=== PATIENT | male | born 1940 | race Caucasian/White ===

== ENCOUNTER 2017-08-09 03:07 | Inpatient (IN) | payer MEDICARE, MEDICAID ==
[~2017-08-09 03:07] MED LIST: ACIDOPHILUS LAC1 CAP PO; ARICEPT5 MG PO; BETAPACE 80 MG80 MG PO; CARDIZEM SR60 MG PO; DILANTIN100 MG PO; FLOMAX0.4 MG PO; KEPPRA500 MG PO; KLONOPIN0.5 MG PO; KRISTALOSE20 G/PKT PO; LEVOTHYROXINE100 MCG PO; MYSOLINE 50 MG50 MG PO; OMNICEF300 MG PO; PROTONIX40 MG PO; SYNTHROID50 MCG PO; XANAX0.25 MG PO
[2017-08-09 04:05] LABS: APPEARANCE CLEAR (CLEAR); BILIRUBIN NEGATIVE (NEGATIVE); COLOR YELLOW (YELLOW); GLUCOSE NEGATIVE (NEGATIVE); KETONE NEGATIVE (NEGATIVE); NITRITE NEGATIVE (NEGATIVE); PROTEIN TRACE mg/dL (NEGATIVE); UROBILINOGEN NORMAL (NORMAL)
[2017-08-09 04:07] LABS: BACTERIA FEW /hpf (NONE SEEN); EPITHELIAL CELLS 0-5 /hpf (0-5); RED CELLS - URINE 0-5 /hpf (0-5); WHITE CELLS - URINE 0-5 /hpf (0-5)
[2017-08-09 04:30] LABS: BASOPHILS 0.1 % (0-2); EOSINOPHILS 0.1 % (0-7); HEMATOCRIT 34.2 % (42.0-54.0); HEMOGLOBIN 11.3 g/dL (13.5-17.5); IMMATURE GRANULOCYTES 0.3 % (0-5); LYMPHOCYTES 7.4 % (15-50); MCH 29.6 pg (26.0-34.0); MCV 89.5 fL (80.0-100.0); MEAN PLATELET VOLUME 10.7 fL (7.4-10.4); MONOCYTES 15.1 % (2-11); RBC 3.82 10x6/uL (4.20-6.10); RDW 13.3 % (11.5-14.5); WBC 12.6 10x3/uL (4.8-10.8)
[2017-08-09 04:32] LABS: PLATELET COUNT 128 10x3/uL (130-400)
[2017-08-09 04:46] LABS: ALBUMIN 3.1 g/dL (3.4-5.0); ANION GAP 12.7 mmol/L (8-16); BILIRUBIN - TOTAL 0.39 mg/dL (0.2-1.3); CALCIUM 8.6 mg/dL (8.5-10.1); CARBON DIOXIDE 26.6 mmol/L (21.0-32.0); CREATININE - SERUM 1.1 mg/dL (0.6-1.3); POTASSIUM - SERUM 3.3 mmol/L (3.5-5.1); PROTEIN - SERUM 6.8 g/dL (6.4-8.2)
[2017-08-09 05:54] LABS: PHENYTOIN (DILANTIN) 27.2 ug/mL (10.0-20.0); VALPROIC ACID (DEPAKOTE) 4.5 ug/mL (50.0-100.0)
--- NOTE | 2017-08-09 08:45 | NUR ---
FOUND PT IN ROOM FROM ER. LYING IN BED AWAKE. VSS. PT IS ALERT BUT REALLY CONFUSED, PT ORIENTED TO SELF AND THATS IT. PT COULDNT TELL ME WHERE HE IS FROM OR CURRENT SITUATION OR PLACE. PT IS FROM [facility] AND WAS APPARENTLY FOUND ON FLOOR AND COULDNT TALK. PT IS TALKING WITH CLEAR NORMAL SPEED SPEECH. PERRLA INTACT. 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 PTS EXPLOSIVES WORKER MEMORY INTACT AND HE IS CURRENTLY REMINISCING ABOUT HIS PARENTS AND CHILDHOOD. ASSISTED PT TO BR AND HIS GAIT IS SLOW AND STEADY NO DEFICITS NOTED. WILL CONTINUE WITH PTS WORK-UP ADMISSION AND CURRENT ORDERS. NO FURTHER NEEDS AT THIS TIME. CL IN REACH, BED IN LOWEST, SIDE RAIL X2 AND BED ALARM ON.
--- NOTE | 2017-08-09 09:30 | NUR ---
MORNING MEDICATIONS PASSED ORDERED. PT SWALLOWED ALL PILLS WITHOUT ANY DIFFICULTIES NOTED AND ALL WHOLE WITH JUICE. PT SITTING UP IN BED OFFERED HIM BREAKFAST AND HE GAVE ORDER OF WHAT HE WANTED, TRAY ORDERED AND WILL WAIT. NO FURTHER NEEDS AT THIS TIME. LOVENOX FOR DVT PROPHYLACTICS.
[2017-08-09 11:23] VITALS: BP 119/46; BMI 24.3
[2017-08-09 12:10] VITALS: BP 100/40
--- NOTE | 2017-08-09 12:49 | NUR ---
PT GOT OOB AND SET OFF BED ALARM. ASSISTED PT TO BR AND HE PASSED BOWEL MOVEMENT. ASSISTED PT BACK INTO BED AND ENCOURAGED HIM TO USE CL FOR HELP OOB TO PREVENT FALLS. PT VERBALIZED UNDERSTANDING BUT OFTEN NEEDS FREQUENT CUING. WILL CPOC.
[2017-08-09] MEDS ORDERED: XARELTO20 MG PO (14:02)
[2017-08-09] MEDS ORDERED: SYNTHROID175 MCG PO (14:04)
[2017-08-09] MEDS ORDERED: ARICEPT10 MG PO (14:05)
[2017-08-09] MEDS ORDERED: DILANTIN50 MG PO ×2 (14:07)
[2017-08-09] MEDS ORDERED: CIMETIDINE200 MG PO (14:08)
[2017-08-09] MEDS ORDERED: DEPAKOTE125 MG PO (14:09)
[2017-08-09] MEDS ORDERED: TRAZODONE HCL50 MG PO (14:09)
--- NOTE | 2017-08-09 14:10 | NUR ---
CALLED [facility] AND VERIFIED PTS BASELINE. PT STAYS PLEASANTLY CONFUSED AND ORIENTED TO SELF ONLY. MED REC COMPLETED AND UPDATED PER [place] MOST RECENT LIST. PT IS A DNR AT [place] WILL OBTAIN ORDER FOR HOSPITAL STAY.
--- NOTE | 2017-08-09 14:15 | NUR ---
PTS HR 46 SB PER [employer] TECH. PAGED REGARDING UPDATED MED LIST TO SEE CHANGES AND AWARE OF LOW HR. WILL CPOC.
--- NOTE | 2017-08-09 14:37 | NUR ---
DNR ORDER IN PLACE AND COPIES IN CHART. MED CHANGES MADE REQUESTED PER [place] [facility]IM[facility]. WILL CPOC.
[2017-08-09 15:00] LABS: T4 THYROXIN - FREE 1.31 ng/dL (0.76-1.46); THYROID STIMULATING HORMONE 0.09 uIU/mL (0.36-3.74)
[2017-08-09 15:43] VITALS: BP 96/39
--- NOTE | 2017-08-09 17:43 | NUR ---
IN/OUT CATH PERFORMED FOR URINE CX ORDERED. PT TOLERATED WITHOUT ANY COMPLAINTS. 200CC OF CLEAR YELLOW URINE DRAINED. URINE SENT TO LAB. NO FURTHER NEEDS AT THIS TIME.
[2017-08-09 19:00] VITALS: BP 142/42
--- NOTE | 2017-08-09 19:59 | NUR ---
RESUMED CARE OF PT, LYING IN BED RESPIRATIONS EVEN AND UNLABORED ON ROOM AIR. ASSISSTED TO BATHROOM. LEFT FOREARM INFUSING 1/2 NS @ 75. 61 SR ON TELEMETRY. WILL CONTINUE TO MONITOR. SEE NURSE ASSESSMENT.
[2017-08-10] VITALS (7 sets, daily range): BP systolic 128–173; BP diastolic 50–101; BMI 24.1
[2017-08-10 04:24] LABS: BASOPHILS 0.1 % (0-2); EOSINOPHILS 0.2 % (0-7); HEMATOCRIT 34.1 % (42.0-54.0); HEMOGLOBIN 11.1 g/dL (13.5-17.5); IMMATURE GRANULOCYTES 0.2 % (0-5); LYMPHOCYTES 11.9 % (15-50); MCH 29.1 pg (26.0-34.0); MCHC 32.6 g/dL (31.0-37.0); MCV 89.3 fL (80.0-100.0); MEAN PLATELET VOLUME 10.5 fL (7.4-10.4); MONOCYTES 11.3 % (2-11); NEUTROPHILS 76.3 % (40-80); PLATELET COUNT 117 10x3/uL (130-400); RBC 3.82 10x6/uL (4.20-6.10); RDW 13.6 % (11.5-14.5); WBC 12.3 10x3/uL (4.8-10.8)
[2017-08-10 04:38] LABS: CALCIUM 8.3 mg/dL (8.5-10.1); CARBON DIOXIDE 28.5 mmol/L (21.0-32.0); CREATININE - SERUM 1.1 mg/dL (0.6-1.3); POTASSIUM - SERUM 3.5 mmol/L (3.5-5.1)
--- NOTE | 2017-08-10 05:58 | NUR ---
IV REMOVED BY PT, TIP INTACT. 22 GAUGE TO LEFT HAND X 1 STICKS. CALL LIGHT IN REACH AND BED ALARM ON.
--- NOTE | 2017-08-10 06:42 | NUR ---
NO CHANGES FROM PREVIOUS ASSESSMENT.
--- NOTE | 2017-08-10 07:06 | HP ---
PATIENT: MONIK PEÑALOZA MEDICAL RECORD: [id number] ACCOUNT: [id number] LOCATION:[address] : 40 ADMISSION DATE: 08/09/17 HISTORY AND PHYSICAL EXAMINATION DATE OF ADMISSION: 08/09/2017 CHIEF COMPLAINT: Fall. HISTORY OF PRESENT ILLNESS: The patient is a 77-year-old gentleman, who resides at a local senior care. He apparently has no local physician and is admitted to my service on an unassigned medicine. Apparently, the patient had fallen at [facility]. The patient presented to the Emergency Room for evaluation. He was evaluated by Dr. Mercado, who felt the patient should be admitted with leukocytosis as well as bacteremia. PAST MEDICAL HISTORY: His history is very difficult to obtain secondary to his dementia. Apparently, the patient has had a history of dementia, possible diabetes mellitus, hypothyroidism, cholelithiasis, history of seizure disorder, history of atrial fibrillation. FAMILY HISTORY: Cannot be obtained. HABITS: The patient denies any ethanol, tobacco use or abuse. He does reside in a local senior care. ALLERGIES: He has known drug allergies. MEDICATIONS: Include Xarelto 20 mg 1 p.o. q. day, phenytoin 100 mg at noon, lactulose 20 grams q. day, Depakote Sprinkle 125 mg 3 times a day, trazodone 50 mg p.o. q. day, phenytoin 150 mg 2 times a day, Tagamet 200 mg b.i.d., Mysoline 50 mg 2 times a day, Keppra 500 mg 2 tablets once a day, Betapace 80 mg b.i.d., Synthroid 175 mcg once a day, Aricept 10 mg 1 p.o. q. day, Flomax 0.4 mg once a day, Cardizem 60 mg b.i.d. REVIEW OF SYSTEMS: CONSTITUTIONAL: He denies any headaches, seizure or syncope. Denied change in visual or auditory acuity. PULMONARY: He denies any shortness of breath, cough, congestion, history of TB, asthma or bronchitis. CARDIOVASCULAR: No chest pain, palpitation, PND or orthopnea. GASTROINTESTINAL: No chronic nausea, vomiting, melena or hematochezia. GENITOURINARY: No urgency, frequency, or dysuria. PHYSICAL EXAMINATION: GENERAL: He is a well-nourished and well-developed male, who is in no acute distress at the present time. The patient is somewhat confused. He is alert to person, not to place nor time. VITAL SIGNS: Temperature was 101.9, respirations 18, his pulse is 72 and his blood pressure 142/52. HEENT: Unremarkable. NECK: Supple. There is no adenopathy. HEART: Has a regular rate and rhythm without any murmurs, gallops or rubs. LUNGS: Clear. ABDOMEN: Soft. Bowel sounds are positive. No organomegaly. HISTORY AND PHYSICAL [id number] MONIK PEÑALOZA GENITAL: Deferred. RECTAL: Deferred. LABORATORY DATA: The patient's white count is elevated at 12.6, hemoglobin 11.3, hematocrit 34.2. His platelets are 128. He had a sodium of 142, potassium 3.3, chloride is 106, CO2 is 26, BUN was 16, creatinine 1.1, glucose 135. Urinalysis showed 1+ blood, trace leukocytes, few bacteria. ASSESSMENT: Bacteriuria, febrile illness, leukocytosis, history of seizure disorder, hypothyroidism, dementia, gastroesophageal reflux, hypokalemia, hypertension and atrial fibrillation. PLAN: The patient is admitted. Blood cultures and urine cultures will be obtained. He will have a chest x-ray. Given Rocephin 1 gram q.24 hours. IV hydration. Correct potassium. Continue to evaluate. TRANSINT:[id number] Voice Confirmation ID: [id number] DOCUMENT ID: [id number] MARY ARCE MD at 0706 CC: [id number] DICTATION DATE: 08/09/17722 MARKETING OPERATIONS MANAGER: 08/09/17 0825 ADM IN [facility] [address] [id number]
--- NOTE | 2017-08-10 08:20 | NUR ---
AM MEDICATIONS GIVEN AND PT SWALLOWED WITHOUT ANY DIFFICULTIES. PT SITTING UP IN BEDSIDE CHAIR EATING BREAKFAST AND STATES HE SLEPT WELL. PT STILL VERY CONFUSED BUT PLEASANTLY. PT NEEDS CONSTANT REMINDERS TO CALL FOR HELP OR ASSISTANCE HOWEVER PT HASNT DEMONSTRATED USE OF CL YET. PT HAS L.HAND PIV IN PLACE WITH 1/2 NS @75ML/HR INFUSING, DRSG CDI AND SWAB CAPS IN USE WITH TUBING LABELED CORRECTLY PER PROTOCOL. PT DENIES ANY CURRENT PAIN OR NEEDS AT THIS TIME. CL IN REACH, CHAIR ALARM IN PLACE. WILL CPOC.
--- NOTE | 2017-08-10 08:56 | NUR ---
PT GOT OOB SET OFF BED ALARM AND WAS FOUND UP IN BR. BLOOD ON LINENS AND FLOOR FROM PIV BEING TUGGED OUT, CATH TIP FULLY INTACT. PT PLEASANTLY CONFUSED AND NEEDS CONSTANT CUING AND REMINDERS TO CALL FOR HELP, DOOR STAYS OPEN AND PT IS CLOSEST TO NURSES STATION YET STILL GET UP VERY FAST. PTS TEMP UP TO 100.1 TYLENOL ORDERED AND GIVEN TO HELP REDUCE TEMP. PT ASYMPTOMATIC AND STATES HE FEELS WELL. CLEANED PT UP AND ASSISTED HIM BACK INTO BED AND COMPLETE LINEN CHANGE PROVIDED. PT DENIES ANY FURTHER NEEDS AT THIS TIME. CL IN REACH, BED IN LOWEST, SIDE RAILS X2 DEISI PAD IN PLACE AND ALARMED, DOOR OPEN. WILL CPOC.
--- NOTE | 2017-08-10 09:58 | NUR ---
TEMP NOW DOWN TO 99.0 AFTER TYLENOL WAS GIVEN. ONE TIME DOSE OF METOPROLOL GIVEN ORDERED, PRE VITALS 170/78 UNCONTROLLED AFIB @119. WILL RECHECK SHORTLY AND CPOC.
--- NOTE | 2017-08-10 10:30 | NUR ---
RECHECK OF BP AFTER METOPROLOL DOWN TO 128/67, UNCONTROLLED A.FIB AT 130
--- NOTE | 2017-08-10 11:52 | NUR ---
PT UP OOB SET OFF BED ALARM ASKING "DO I NEED TO GO EAT LUNCH" ASSISTED PT BACK INTO BED AND REORIENTED HIM AND LET HIM KNOW LUNCH WILL BE BROUGHT TO HIM AND SHORTLY. PT VERBALIZED UNDERSTANDING BUT IS CONSTANTLY NEEDING REMINDERS. DEISI ALARM ON AND IN PLACE, BED IN LOWEST, SIDE RAILS X2, AND DOOR OPEN AND IN SIGHT OF MY DESK. WILL CPOC.
--- NOTE | 2017-08-10 11:54 | NUR ---
NURSE CALLED FROM CLINIC REQUESTING A CT OF THE CHEST WITH CONTRAST, ORDER PLACED IN COMPUTER AND RADIOLOGY AWARE. WILL CPOC.
--- NOTE | 2017-08-10 12:42 | NUR ---
DISCONNECTED PT FROM IV FLUIDS FOR CT TEST. NO CURRENT NEEDS.
--- NOTE | 2017-08-10 13:15 | NUR ---
PT BACK FROM CT OF CHEST. RECONNECTED TO IV FLUIDS ORDERED. WILL CPOC.
--- NOTE | 2017-08-10 17:13 | NUR ---
CALLED RADIOLOGY TO CONFIRM RESULTS OF CT WERE FAXED OR CALLED TO , THEY CONFIRMED HE WAS AND IS AWARE. NO FURTHER NEEDS NOTED.
--- NOTE | 2017-08-11 01:10 | NUR ---
PT CURRENTLY LYING IN BED, RESTING COMFORTABLY. PT IS ALERT AND ORIENTED TO PERSON, HE IS ABLE TO STATE HIS FULL NAME AND CORRECT . WHEN ASKED WHERE PT LIVES, HE STATES IN [facility], BUT CANNOT TELL ME THE LOCATION. PT DENIES ANY NEEDS. PT IS A PLEASANTLY CONFUSED GENTLEMAN WHO IS UP FREQUENTLY TO THE BATHROOM. DEISI MAT IS ON BED AND ON. CONTINUE TO MONITOR PT CLOSELY. BED LOW, CALL LIGHT IN REACH, SIDE RAILS X 2, HOB FLAT.
[2017-08-11 01:53] VITALS: BP 122/59
--- NOTE | 2017-08-11 02:39 | NUR ---
PT CONTINUES TO GET UP TO GO TO THE BATHROOM R/T PTS URINARY URGENCY AND FREQUENCY. I HAVE URGED PT MULTIPLE TIMES TO PLEASE STAY IN BED, DEMONSTRATED MULTIPLE TIMES HOW AND WHEN TO USE HIS CALL LIGHT, BUT PT IS UNABLE TO RETAIN THIS INFORMATION AT THIS TIME. PT IS CONFUSED, AND THOUGH HE IS EASILY REORIENTED, PT DOES NOT REMEMBER SIMPLE INSTRUCTIONS. PT HAS BEEN PLACED BACK INTO BED, HOWEVER HE DOES NOT STAY THERE. DEISI MAT IS STILL IN PLACE, ALARM WORKS AND IS ON, BUT PT IS QUICK. PTS ROOM IS VISIBLE FROM THE NURSES DESK AND HIS DOOR IS KEPT OPEN AT ALL TIMES FOR INCREASED SAFETY PRECAUTIONS. I HAVE SALINE LOCKED PTS IV AT THIS TIME, PT HAS TRIPPED OVER THE TUBING AND ALMOST PULLED IT OUT SEVERAL TIMES, HE DOES NOT UNDERSTAND WHAT IT IS AND WHAT IT IS FOR. I AM HOPING PT WILL BE ABLE TO REST AT THIS TIME. WILL CONTINUE TO MONITOR CLOSELY. BED LOW, CALL LIGHT IN REACH ALTHOUGH PT IS UNABLE TO UNDERSTAND HOW AND WHEN TO USE IT, SIDE RAILS X 2, HOB FLAT, DEISI MAT UNDER PT AND ON.
[2017-08-11 04:16] VITALS: BP 125/70
--- NOTE | 2017-08-11 04:53 | NUR ---
PT IS RESTING COMFORTABLY, HAS BEEN INCREASINGLY CONFUSED THIS SHIFT, HOWEVER IS IN BED, EYES CLOSED, RESPIRATIONS EVEN AND UNLABORED AT THIS TIME. CONTINUE TO MONITOR PT CLOSELY. BED LOW, CALL LIGHT IN REACH, SIDE RAILS X 2, HOB FLAT, DEISI MAT UNDER PT AND ON.
[2017-08-11 05:38] LABS: BASOPHILS 0.1 % (0-2); EOSINOPHILS 0.4 % (0-7); HEMATOCRIT 32.1 % (42.0-54.0); HEMOGLOBIN 10.4 g/dL (13.5-17.5); IMMATURE GRANULOCYTES 0.2 % (0-5); LYMPHOCYTES 14.7 % (15-50); MCH 28.7 pg (26.0-34.0); MCHC 32.4 g/dL (31.0-37.0); MCV 88.7 fL (80.0-100.0); MONOCYTES 14.6 % (2-11); PLATELET COUNT 119 10x3/uL (130-400); RBC 3.62 10x6/uL (4.20-6.10); RDW 13.4 % (11.5-14.5); WBC 11.5 10x3/uL (4.8-10.8)
[2017-08-11 05:51] LABS: CALC OSMOLALITY 278 mosm/kg (275-300); CALCIUM 8.1 mg/dL (8.5-10.1); CARBON DIOXIDE 24.9 mmol/L (21.0-32.0); CHLORIDE - SERUM 105 mmol/L (98-107); GLUCOSE 136 mg/dL (74-106); MAGNESIUM - SERUM 1.7 mg/dL (1.8-2.4); POTASSIUM - SERUM 3.2 mmol/L (3.5-5.1); SODIUM 139 mmol/L (136-145); UREA NITROGEN 11 mg/dL (7-18); eGFR NON AFRICAN AMERICAN 77 mL/min (90-120)
--- NOTE | 2017-08-11 06:42 | NUR ---
PT STILL RESTING COMFORTABLY, IV ROCEPHIN INFUSING AT THIS TIME. NO NEEDS. CONTINUE TO MONITOR CLOSELY.
--- NOTE | 2017-08-11 07:15 | NUR ---
REPORT RECEIVED. RR EVEN AND UNLABORED. PT ASLEEP. DEISI ALARM IN PLACE, PT IS VISIBLE FROM NURSES STATION. WILL CTM.
[2017-08-11 08:46] VITALS: BP 135/52
[2017-08-11 11:59] VITALS: BP 123/42
[2017-08-11 16:20] VITALS: BP 139/54
--- NOTE | 2017-08-11 16:40 | NUR ---
SPOKE TO DR. NATION REGARDING PT CONDITION. TOLD ME TO CALL POA AND OBTAIN CONSENT FOR CT GUIDED LUNG BIOPSY. WILL ATTEMPT TO CALL AND CTM.
--- NOTE | 2017-08-11 16:41 | NUR ---
@0732, RECEIVED ORDER FROM DR SANTOS REQUESTING THAT CM FIND OUT WHO THE PATIENTS POA WAS AND TALK WITH THEM TO SEE HOW AGGRESSIVE THEY WOULD WANT TO BE IN WORKUP OF POSSIBLE LUNG CANCER. @0821, CALL WAS PLACED TO EARNEST CHANDLER, COUSIN AND POA AT HER HOME NUMBER ([phone]) THIS NUMBER RANG AND RANG AND NO VOICEMAIL PICKED UP. CALL WAS THEN PLACED TO HER WORK NUMBER ([phone]). I LEFT A MESSAGE ON HER VOICE MAIL REQUESTING HER TO CALL AT HER CONVIENCE TO TALK ABOUT THE PATIENT WE HAD HER LISTED THE PATIENTS POA. @0922, SPOKE WITH MRS. CHANDLER. SHE WAS UNAWARE OF THE FINDINGS DURING THIS ADMISSION AND WAS A LITTLE SHOCKED TO HEAR OF THE POSSIBILITY OF LUNG CANCER. SHE QUESTIONED TO WHERE THEY CAME UP WITH THAT FROM. I EXPLAINED THE FOUND IT BY ACCIDENT ON A CT THAT WAS DONE OF HIS CHEST. SHE WANTED TO KNOW WHAT IT SAID. IT WAS EXPLAINED THAT I COULD READ WHAT WAS TYPED IN THE IMPRESSION LINE, BUT I COULD NOT INTERPERATE WHAT I READ INTO ANYTHING ELSE FOR HER. SHE STATED HER UNDERSTANDING (SHE WORKS AT [employer] AND STATED UNDERSTANDING OF SCOPES OF PRACTICE). SHE HAS REQUESTED THAT WE PROCEEDE WITH A BIOPSY TO SEE IF IT TRUELY IS CANCER AND ASK AN ONCOLOGIST TO SEE THE PATIENT. SHE ALSO WANTED TO KNOW IF THE PATIENT HAD METS. I EXPLAINED AT THIS TIME I HAVE GIVEN HER ALL THE INFORMATION THAT I HAD TO GIVE. SHE THEN ASKED IF HE COULD BE WORKED UP TO SEE IF HE HAD METS. AND THEN AFTER THAT, ONCE THEY KNEW WHAT THEY WERE DEALING WITH AND WHAT THE TREATMENT OPTIONS WERE, SHE WOULD DECIDE WHERE TO GO FROM THERE. SHE STATED THAT THE PATIENT HAS AN UNCLE THAT SHE WOULD LIKE TO TALK THINGS OVER WITH. THAT THERE WERE VERY FEW FAMILY MEMBERS LEFT AND SHE WOULD JUST FEEL BETTER IF THINGS WERE DISCUSSED. I EXPRESSED MY UNDERSTANDING OF WHAT SHE HAD SAID AND SHE STATED SHE WOULD GET BACK WITH ME LATER. @0939, CALL WAS PLACED TO DR SANTOS'S OFFICE, AND I RECEIVED THE VOICEMAIL AFTER REMAINING ON HOLD FOR QUITE SOME TIME. I LEFT A MESSAGE FOR DR SANTOS AND MY CALL BACK NUMBERS FOR QUESTIONS OR IF THERE WAS ANYTHING FURTHER I COULD DO FOR HIM.
--- NOTE | 2017-08-11 16:50 | NUR ---
OBTAINED CONSENT FROM ORI PHILLIPS FOR CT GUIDED LUNG BIOPSY, ANESTHESIA, AND BLOOD CONSENT. DONNY RUELAS RN ALSO SPOKE TO ALAN TO CONFIRM CONSENT. WILL PLACE PAPER CONSENT IN CHART.
--- NOTE | 2017-08-11 18:35 | NUR ---
PT ASLEEP, RR EVEN AND UNLABORED. WILL GIVE REPORT ON PT CONDTION FOR THE DAY.
[2017-08-11 19:00] VITALS: BP 131/51
--- NOTE | 2017-08-11 19:37 | NUR ---
RESTING QUIETLY, OPENS EYES IN RESPONSE TO VOICE/TOUCH. NO SIGNS OR SYMPTOMS OF DISCOMFORT. DENIES ANY NEEDS. DEISI ALARM IS ON. LEFT DOOR OPEN TO MONITOR CLOSELY.
--- NOTE | 2017-08-11 21:35 | NUR ---
ADMIN SCHED MEDS WITH APPLESAUCE AND SIPS OF WATER. REQUESTED ASSISTANCE WITH TURNING ON TV. SHOWED HIM CORRECT BUTTONS TO USE TRANSPORT COMPANY MANAGER LIGHT.
[2017-08-12] VITALS: BP 148/45
--- NOTE | 2017-08-12 01:55 | NUR ---
ADMIN TYLENOL 500 MG PO FOR C/O HEADACHE.
--- NOTE | 2017-08-12 03:35 | NUR ---
ASSISTED TO BATHROOM TO VOID. AMBULATED WITH WEAK UNSTEADY GAIT. NO OTHER NEEDS VOICED.
[2017-08-12 04:00] VITALS: BP 142/42
[2017-08-12 04:39] LABS: BASOPHILS 0.1 % (0-2); EOSINOPHILS 1.4 % (0-7); HEMATOCRIT 29.2 % (42.0-54.0); HEMOGLOBIN 9.7 g/dL (13.5-17.5); IMMATURE GRANULOCYTES 0.3 % (0-5); LYMPHOCYTES 17.2 % (15-50); MCHC 33.2 g/dL (31.0-37.0); MCV 87.2 fL (80.0-100.0); MEAN PLATELET VOLUME 10.3 fL (7.4-10.4); MONOCYTES 14.6 % (2-11); NEUTROPHILS 66.4 % (40-80); PLATELET COUNT 114 10x3/uL (130-400); RBC 3.35 10x6/uL (4.20-6.10); RDW 13.5 % (11.5-14.5)
[2017-08-12 04:43] LABS: WBC 7.8 10x3/uL (4.8-10.8)
[2017-08-12 04:52] LABS: ALBUMIN 2.2 g/dL (3.4-5.0); ALKALINE PHOSPHATASE 30 U/L (46-116); ALT (SGPT) 22 U/L (10-68); BILIRUBIN - TOTAL 0.24 mg/dL (0.2-1.3); CALC OSMOLALITY 279 mosm/kg (275-300); CALCIUM 7.9 mg/dL (8.5-10.1); CARBON DIOXIDE 27.6 mmol/L (21.0-32.0); CHLORIDE - SERUM 106 mmol/L (98-107); CREATININE - SERUM 0.9 mg/dL (0.6-1.3); GLUCOSE 127 mg/dL (74-106); POTASSIUM - SERUM 3.1 mmol/L (3.5-5.1); PROTEIN - SERUM 6.3 g/dL (6.4-8.2); SODIUM 139 mmol/L (136-145); UREA NITROGEN 13 mg/dL (7-18); eGFR NON AFRICAN AMERICAN 87 mL/min (90-120)
--- NOTE | 2017-08-12 07:52 | NUR ---
PT SITTING UP IN BED WATCHING TV DENIES NEEDS WILL CONT TO MONITOR
[2017-08-12 08:00] VITALS: BP 152/44
--- NOTE | 2017-08-12 12:00 | NUR ---
PT PIV INFILTRATED. WENT TO GET STUFF TO REMOVE, WHEN COMING BACK INTO PT ROOM HE HAS PULLED PIV OUT HIMSELF. CATH TIP IS INTACT. ATTEMPTED TO RESITE PIV X2 STICKS. UNSUCCESSFUL. WILL ASK OTHER STAFF TO TRY RESITE.
[2017-08-12 12:20] VITALS: BP 155/46
--- NOTE | 2017-08-12 17:37 | NUR ---
PT SITTING UP IN BED WATCHING TV, PT HAS DEISI ALARM ON AND PATENT. DENIES NEEDS. WILL CONT TO MONITOR
--- NOTE | 2017-08-12 19:18 | NUR ---
PT REFUSES TELE, RETURNED TO EYEGLASS CUTTER
--- NOTE | 2017-08-12 21:42 | NUR ---
PT UP TO RESTROOM AGAIN. PT NOW LAYING IN BED WATCHING TV. PT DENIES ANY NEEDS. NO S/S OF DISTRESS. WILL CPOC
--- NOTE | 2017-08-12 22:01 | NUR ---
PT OOB. ALARM WENT OFF AND PT GOT LOUD AND AGGRESIVE. CALMED PT DOWN AND GOT HIM IN BED. PT NOW TRYING TO GET SOME SLEEP. ALARM ON AND ACTIVE. WILL CPOC
[2017-08-12 23:04] VITALS: BP 182/70
--- NOTE | 2017-08-13 00:21 | NUR ---
PT HAS GOT UP 3 TIMES IN A ROW WITHIN 20 MINS SAYING HE HAS TO LEAVE BEFORE THE RAIN. PT IS NOT AGGRESSIVE AT THIS TIME. PT LAYING BACK DOWN AND DEISI ALARM ON AND ACTIVE. BEDLOW AND CALL LIGHT IN REACH. WILL CPOC
--- NOTE | 2017-08-13 01:00 | NUR ---
PT IS CONSTANTLY GETTING OOB. ANSWERED ALARM 10 TIMES IN LAST 26 MINS. PT HAS NO NEEDS. PT HAS USED RESTROOM PT JUST CONFUSED AND TRYING TO LEAVE BEFORE RAIN COMES. PT BACK IN BED. DENIES ANY NEEDS. NO S/S OF DISTRESS. WILL CPOC
[2017-08-13 01:43] VITALS: BP 168/60
[2017-08-13 04:53] LABS: BASOPHILS 0.3 % (0-2); EOSINOPHILS 2.6 % (0-7); HEMATOCRIT 32.5 % (42.0-54.0); HEMOGLOBIN 10.8 g/dL (13.5-17.5); IMMATURE GRANULOCYTES 0.3 % (0-5); MCHC 33.2 g/dL (31.0-37.0); MCV 87.4 fL (80.0-100.0); MEAN PLATELET VOLUME 10.2 fL (7.4-10.4); MONOCYTES 17.8 % (2-11); RBC 3.72 10x6/uL (4.20-6.10); RDW 13.4 % (11.5-14.5)
[2017-08-13 05:00] LABS: PLATELET COUNT 151 10x3/uL (130-400)
[2017-08-13 05:35] LABS: ALBUMIN 2.6 g/dL (3.4-5.0); ALKALINE PHOSPHATASE 31 U/L (46-116); ALT (SGPT) 37 U/L (10-68); CALC OSMOLALITY 273 mosm/kg (275-300); CALCIUM 8.3 mg/dL (8.5-10.1); CARBON DIOXIDE 26.9 mmol/L (21.0-32.0); CHLORIDE - SERUM 103 mmol/L (98-107); GLUCOSE 113 mg/dL (74-106); MAGNESIUM - SERUM 1.9 mg/dL (1.8-2.4); PHOSPHOROUS 2.8 mg/dL (2.5-4.9); POTASSIUM - SERUM 3.3 mmol/L (3.5-5.1); PROTEIN - SERUM 6.3 g/dL (6.4-8.2); SODIUM 137 mmol/L (136-145); UREA NITROGEN 10 mg/dL (7-18); eGFR NON AFRICAN AMERICAN 77 mL/min (90-120)
--- NOTE | 2017-08-13 06:45 | NUR ---
PT WENT TO GET AN XRAY OF THE CHEST. PT TOLERATED WELL, PT HAS NOT HAD ANY OUTBURST OF YELLING AND SEVERE ANGER SINCE MIDNIGHT. PT HAS NO S/S OF DISRESS. WE ARE NOW MOVING PT FROM BED TO CHAIR AND TO BATHROOM LITERALY EVER 5-10 MIN. PT IS UP IN ROOM AND ALARM IS GOING OFF. ALARM ON BED AND CHAIR ACTIVE. PT HAS NO S/S OF DISTRESS. WILL CPOC
[2017-08-13 08:00] VITALS: BP 160/49
[2017-08-13 12:00] VITALS: BP 170/50
[2017-08-13 16:00] VITALS: BP 144/54
--- NOTE | 2017-08-13 19:40 | NUR ---
ROUNDING NOTE: PT IS SLEEPING IN BED AT THE CHANGE OF SHIFT. PER REPORT, PT HAS BEEN CONFUSED W/ INTERMITTENT PHYSICAL & VERBAL AGGRESSION. THERE IS AN ORDER FOR A DEISI BED IF IT BECOMES NECESSARY. FOR NOW, PT IS CALM AND SLEEPING IN BED, WILL CONTINUE TO CLOSELY MONITOR. DEISI BED ALARM IS ON. PT HAS NO IV ACCESS, SO HE IS NOT GETTING HIS IV ABX OR IVF. WILL CONTACT DOCTOR FOR PO ORDERS. PLAN IS FOR LLL LUNG BX TOMORROW.
[2017-08-13 20:25] VITALS: BP 139/44
--- NOTE | 2017-08-13 21:17 | NUR ---
PT HAS NO IV ACCESS B/C HE PULLED OUT HIS IV ACCESS DURING DAY SHIFT. PT HAS ORDERS FOR IV ABX X2 AND IVF 1/2NS W/20KCL. ANSWERING SERVICE CALLED, RECEIVED CALL BACK FROM DR. SANTOS WHO STATES TO LEAVE IV OUT OVERNIGHT FOR NOW AND READDRESS IN THE MORNING. PT IS SLEEPING CALMLY. WILL CONTINUE TO MONITOR.
[2017-08-14 00:51] VITALS: BP 136/55
[2017-08-14 05:14] LABS: BASOPHILS 0.3 % (0-2); EOSINOPHILS 2.3 % (0-7); HEMATOCRIT 32.7 % (42.0-54.0); HEMOGLOBIN 10.6 g/dL (13.5-17.5); IMMATURE GRANULOCYTES 0.7 % (0-5); LYMPHOCYTES 20.3 % (15-50); MCH 28.6 pg (26.0-34.0); MCHC 32.4 g/dL (31.0-37.0); MCV 88.1 fL (80.0-100.0); MEAN PLATELET VOLUME 10.2 fL (7.4-10.4); MONOCYTES 18.9 % (2-11); NEUTROPHILS 57.5 % (40-80); PLATELET COUNT 176 10x3/uL (130-400); RBC 3.71 10x6/uL (4.20-6.10); RDW 13.5 % (11.5-14.5); WBC 6.9 10x3/uL (4.8-10.8)
[2017-08-14 05:19] VITALS: BP 150/43
[2017-08-14 05:42] LABS: ALBUMIN 2.2 g/dL (3.4-5.0); ALKALINE PHOSPHATASE 31 U/L (46-116); ALT (SGPT) 41 U/L (10-68); BILIRUBIN - TOTAL 0.13 mg/dL (0.2-1.3); CALC OSMOLALITY 289 mosm/kg (275-300); CALCIUM 8.3 mg/dL (8.5-10.1); CARBON DIOXIDE 29.1 mmol/L (21.0-32.0); CHLORIDE - SERUM 108 mmol/L (98-107); CREATININE - SERUM 0.9 mg/dL (0.6-1.3); GLUCOSE 109 mg/dL (74-106); PHOSPHOROUS 2.9 mg/dL (2.5-4.9); POTASSIUM - SERUM 3.6 mmol/L (3.5-5.1); PROTEIN - SERUM 6.5 g/dL (6.4-8.2); SODIUM 144 mmol/L (136-145); eGFR NON AFRICAN AMERICAN 87 mL/min (90-120)
[2017-08-14 05:48] LABS: UREA NITROGEN 17 mg/dL (7-18)
--- NOTE | 2017-08-14 05:52 | NUR ---
PT HAS BEEN CALM DURING THIS SHIFT. HE HAS BEEN SLEEPING ON AND OFF THROUGHOUT SHIFT. PT DOES CONTINUE TO TRY TO GET OOB WITHOUT ASSISTANCE. BED ALARM IS ON AND WORKING. FELT PULLER GAVE PT A BEDBATH. NO BEHAVIORS, NO AGGRSSION. PT IS PLEASANTLY CONFUSED. DENIES ANY NEEDS. WILL CONT TO MONITOR.
[2017-08-14 07:08] LABS: APTT 27.9 SECONDS (22.8-39.4); INR 1.07 (0.85-1.17); PROTIME 13.7 SECONDS (11.6-15.0)
[2017-08-14 08:21] VITALS: BP 148/48
--- NOTE | 2017-08-14 08:58 | NUR ---
ASSESSMENT DONE. DENIES NEEDS
--- NOTE | 2017-08-14 10:36 | NUR ---
RESTS WITH EYES CLOSED. NO S/S DISCOMFORTS NOTED. CALL LIGHT IN REACH. WILL CONT. PLAN OF CARE.
[2017-08-14 12:26] VITALS: BP 116/56
--- NOTE | 2017-08-14 12:46 | NUR ---
Nutrition Follow Up: Pt is eating 43% meal avg on a regular diet. He is receiving Ensure TID. +BM 08/12/17. Wt stable. Labs reviewed. Meds noted. Rec continue current diet. RD following.
[2017-08-14 15:58] VITALS: BP 135/44
--- NOTE | 2017-08-14 17:44 | NUR ---
WITHOUT CHANGES OR DISTRESS NOTED AT THIS TIME. DENIES NEEDS
--- NOTE | 2017-08-14 18:05 | NUR ---
Patient Name: MONIK PEÑALOZA Admission Status: ER Accout number: [id number] Admission Date: 08-09-2017 : 1940 Admission Diagnosis:BACTERIURIA Attending: MARY ARCE Current LOS: 5 Anticipated DC Date: Planned Disposition: Nursing Facility [facility] Primary Insurance: [facility] Discharge Planning Comments: This patient was admitted from [facility]. He was admitted to the [facility] on 04/14/2016. His PCP is DR Stallings. TC to the cousin, Irma Sparrow and ALAN at [phone]. No answer. TC to [phone] x2. No answer. TC to [phone] ?? fax line. Patient w/ HX of A Fib, SZ Disorder, UTI, Pneumonia, Dysphagia, Dementia, Anxiety Patient is DNR. DX UTI. Will f/u with his cousin and facility to verify plan at discharge. Correspondence Clerk: Chelsea Rodgers
--- NOTE | 2017-08-14 19:20 | NUR ---
ROUNDING NOTE: PT IS SITTING UP IN BED AND WATCHING TV AT THE CHANGE OF SHIFT. PT WILL BE NPO AFTER MIDNIGHT FOR LUNG BX IN THE AM. THIS WAS DISCUSSED WITH PATIENT. PT WOULD LIKE TO ADD TYLENOL TO HIS BEDTIME MED PASS FOR MILLER. ALSO REINFORCED THE NEED TO USE CALL IGHT TO ASK FOR ASSIST TO GET OOB. PT VERBALIZES UNDERSTANDING, BUT WILL NEED CONTINUED REINFORCEMENT. PT IS PLEASANTLY CONFUSED, BUT HE REMAINS CALM WITH NO AGGRESSION OR BEHAVIORS. WILL CONT TO MONITOR.
[2017-08-14 19:32] VITALS: BP 155/55
[2017-08-15] VITALS: BP 134/43
[2017-08-15 04:04] VITALS: BP 132/48
[2017-08-15 04:24] LABS: BASOPHILS 0.6 % (0-2); HEMATOCRIT 33.4 % (42.0-54.0); IMMATURE GRANULOCYTES 0.9 % (0-5); LYMPHOCYTES 29.1 % (15-50); MCH 29.2 pg (26.0-34.0); MCHC 32.9 g/dL (31.0-37.0); MCV 88.6 fL (80.0-100.0); MONOCYTES 16.9 % (2-11); NEUTROPHILS 50.5 % (40-80); PLATELET COUNT 179 10x3/uL (130-400); RBC 3.77 10x6/uL (4.20-6.10); RDW 13.9 % (11.5-14.5); WBC 6.5 10x3/uL (4.8-10.8)
[2017-08-15 04:37] LABS: CALC OSMOLALITY 280 mosm/kg (275-300); CALCIUM 8.5 mg/dL (8.5-10.1); CARBON DIOXIDE 28.4 mmol/L (21.0-32.0); CHLORIDE - SERUM 105 mmol/L (98-107); CREATININE - SERUM 0.8 mg/dL (0.6-1.3); GLUCOSE 111 mg/dL (74-106); POTASSIUM - SERUM 3.5 mmol/L (3.5-5.1); SODIUM 140 mmol/L (136-145); UREA NITROGEN 16 mg/dL (7-18); eGFR NON AFRICAN AMERICAN > 90 mL/min (90-120)
--- NOTE | 2017-08-15 07:21 | NUR ---
AM ROUNDS- PT IN BED, RESP EVEN AND UNLABORED, NO IV ACCESS, PT CONFUSED TO TIME AND SITUATION. DENIES ANY NEEDS AT THIS TIME. DEISI MAT IN PLACE. INSTRUCTED PT TO USE CALL LIGHT IN HE NEEDS ANYTHING, PT VERBALIZED UNDERSTANDING. BED LOW AND WHEELS LOCKED, BEDSIDE RAILS X2, CALL LIGHT IN REACH, NAD NOTED, WILL CONTINUE TO MONITOR.
[2017-08-15 08:11] VITALS: BP 140/47
--- NOTE | 2017-08-15 08:26 | NUR ---
PT TRANSFERED TO IR VIA BED FOR LUMBER PUNCTURE, NAD NOTED.
--- NOTE | 2017-08-15 10:00 | NUR ---
PT TRANSFERED BACK TO ROOM. 4X4 AND TEGADERM NOTED, TO LT UPPER BACK. VITAL SIGNS STABLE. PT PLACED ON FREQUENT VITALS. AM MEDS GIVEN AT THIS TIME. PT DENIES ANY NEEDS AT THIS TIME. CALL LIGHT IN REACH, NAD NOTED, WILL CONTINUE TO MONITOR.
--- NOTE | 2017-08-15 11:52 | NUR ---
PT SHAVED BY STOVE BOTTOM WORKER. PT IN BED, DENIES ANY NEEDS AT THIS TIME. CALL LIGHT IN REACH, NAD NOTED, WILL CONTINUE TO MONITOR.
[2017-08-15 11:55] VITALS: BP 141/49
--- NOTE | 2017-08-15 17:55 | NUR ---
PT GETTING OUT OF BED, STATING " I NEED TO SHAVE RIGHT NOW, INFOMRED PT THAT SOMEONE SHAVED HIM EARLIER TODAY, THAT HE NEEDED TO GET BACK IN BED, AND NOT GET UP WITHOUT ASSISTANCE. PT REPOSITIONED BACK IN BED, DEISI MAX IN PLACE AND ON. PT VERBALIZED UNDERSTANDING REGARDING NOT GETTING UP BY HIMSELF AND USING CALL LIGHT. PT ASKING FOR A DESSERT WILL CALL DIETARY AND HAVE THEM BRING HIM SOME KIND OF DESSERT. PT DENIES ANY OTHER NEEDS AT THIS TIME. CALL LIGHT IN REACH, NAD NOTED, WILL CONTINUE TO MONITOR.
[2017-08-15 19:00] VITALS: BP 161/51
--- NOTE | 2017-08-15 19:41 | NUR ---
PT IN BED WATCHING TELEVISION. DENIES NEEDS AT THIS TIME.
--- NOTE | 2017-08-15 20:17 | NUR ---
PT LYING IN BED, AWAKE, ALERT, CONFUSED, BUT DENIES ANY NEEDS. IV TO RIGHT FOREARM IS ACTIVELY INFUSING 1/2 NS WITH 20 MEQ OF K+. I DID ADMINISTER PTS IM INJECTION FOR CEFEPIME TO L HIP, PT TOLERATED WELL. CONTINUE TO MONITOR CLOSELY. PTS NURSE, LUIS DEVINE IS IN ROOM AT THIS TIME ADMINISTERING HS MEDS. BED LOW, CALL LIGHT IN REACH, SIDE RAILS X 2, HOB 10 DEGREES, DEISI MAT ALARM UNDER PT AND ON.
[2017-08-16] VITALS: BP 141/52
[2017-08-16 04:00] VITALS: BP 140/50
[2017-08-16 04:19] LABS: BASOPHILS 0.3 % (0-2); EOSINOPHILS 2.2 % (0-7); HEMATOCRIT 31.7 % (42.0-54.0); HEMOGLOBIN 10.7 g/dL (13.5-17.5); IMMATURE GRANULOCYTES 1.3 % (0-5); LYMPHOCYTES 30.3 % (15-50); MCH 29.6 pg (26.0-34.0); MCHC 33.8 g/dL (31.0-37.0); MCV 87.6 fL (80.0-100.0); MEAN PLATELET VOLUME 9.3 fL (7.4-10.4); MONOCYTES 14.7 % (2-11); NEUTROPHILS 51.2 % (40-80); RBC 3.62 10x6/uL (4.20-6.10); RDW 13.7 % (11.5-14.5); WBC 6.8 10x3/uL (4.8-10.8)
[2017-08-16 04:24] LABS: PLATELET COUNT 230 10x3/uL (130-400)
[2017-08-16 04:35] LABS: CALC OSMOLALITY 279 mosm/kg (275-300); CALCIUM 8.3 mg/dL (8.5-10.1); CARBON DIOXIDE 28.9 mmol/L (21.0-32.0); CHLORIDE - SERUM 104 mmol/L (98-107); CREATININE - SERUM 0.9 mg/dL (0.6-1.3); GLUCOSE 99 mg/dL (74-106); POTASSIUM - SERUM 3.8 mmol/L (3.5-5.1); SODIUM 140 mmol/L (136-145); UREA NITROGEN 14 mg/dL (7-18); eGFR NON AFRICAN AMERICAN 87 mL/min (90-120)
--- NOTE | 2017-08-16 05:58 | NUR ---
PT CONTINUES TO GET UP OUT OF BED WITH OUT USING CALL LIGHT DESPITE BEING REMINDED TO DO SO SEVERAL TIMES. DEISI ALARM IN PLACE AND FUNCTIONING PROPERLY.
--- NOTE | 2017-08-16 07:30 | NUR ---
AM ROUNDS- PT IN BED, DENIES ANY NEEDS AT THIS TIME. RESP EVEN AND UNLABORED. RT FA IV INFUSING 1/2 NS +KCL AT 50CC/HR. BED LOW AND WHEELS LOCKED, BEDSIDE RAILS X2. DEISI MAT IN PLACE AND ON. INSTRUCTED PT TO CALL FOR ASSISTANCE. CALL LIGHT IN REACH, NAD NOTED, WILL CONTINUE TO MONITOR.
[2017-08-16 07:45] VITALS: BP 170/50
--- NOTE | 2017-08-16 09:06 | NUR ---
ADMINISTERED MORNING MEDICATIONS. PT HAD NO PROBLEMS SWALLOWING. PT IN BED, DENIES ANY NEEDS AT THIS TIME. DEISI MAT IN PLACE AND ON. CALL LIGHT IN REACH, NAD NOTED, WILL CONTINUE TO MONITOR.
--- NOTE | 2017-08-16 12:35 | NUR ---
PT REQUESTED TO BE SHAVED. THIS NURSE SHAVED PT, PT DENIES ANY OTHER NEEDS AT THIS TIME. PLEASANTLY CONFUSED, CALL LIGHT IN REACH, DEISI MAT ON, NAD NOTED, WILL CONTINUE TO MONITOR.
[2017-08-16 12:53] VITALS: BP 130/54
[2017-08-16 16:07] VITALS: BP 125/57
--- NOTE | 2017-08-16 17:06 | NUR ---
PT IN BED AT THIS TIME, EATING DINNER, DENIES ANY NEEDS, CALL LIGHT IN REACH, NAD NOTED, WILL CONTINUE TO MONITOR.
--- NOTE | 2017-08-16 17:53 | NUR ---
Patient Name: MONIK PEÑALOZA Encounter No: [id number] : 1940 Primary Insurance: [facility] Anticipated DC Date: Planned Disposition: Nursing Facility [facility] External Planned Provider: [facility], LONG TERM CARE MEDICAID BED DCP follow-up note: CM RECEIVED CALL FROM [facility], CLINICAL LIAISON FOR [facility], , ASKED FOR CLINICAL UPDATE BE FAXED. CM FAXED REFERRAL TO [facility] VIA [facility] AT [phone]. FOR DISCHARGE TO [facility], FAX DISCHARGE INFORMATION TO [facility] AT [phone]; NURSE REPORT TO BE CALLED TO [facility] AT [phone]. THE [facility] TO ARRANGE VAN COMMODITY LOAN CLERK. Jj Terrell, CASE MANAGEMENT
[2017-08-16 19:00] VITALS: BP 138/53
--- NOTE | 2017-08-16 19:35 | NUR ---
PT IN BED WITH HOB UP FOR COMFORT WATCHING TV. CODE STATUS IS DNR. UP WITH ASSIST. ELECTROLYTE PROTOCOL. NO O2. NO IV. IM ANTIBIOTICS. BACK DRESSING. DEISI ALARM. BED IN LOWEST POSITION AND CALL LIGHT WITHIN REACH.
--- NOTE | 2017-08-16 23:52 | NUR ---
PT UP IN BED WITH HOB UP FOR COMOFRT. WATCHING TV. DEISI ALARM ON. BED IN LOWEST POSITION AND CALL LIGHT WITHIN REACH.
[2017-08-17] VITALS: BP 141/54
--- NOTE | 2017-08-17 02:48 | NUR ---
PT LYING IN BED WITH HOB UP FOR COMFORT. EYES CLOSED. CHEST RISING AND FALLING. BED IN LOWEST POSITION AND CALL LIGHT WITHIN REACH.
--- NOTE | 2017-08-17 05:18 | NUR ---
CALL LIGHT IN REACH, WILL CONTINUE WITH PLAN OF CARE.
[2017-08-17 05:24] VITALS: BP 134/69
[2017-08-17 05:41] LABS: BASOPHILS 0.5 % (0-2); EOSINOPHILS 2.4 % (0-7); HEMOGLOBIN 10.9 g/dL (13.5-17.5); IMMATURE GRANULOCYTES 1.4 % (0-5); LYMPHOCYTES 29.8 % (15-50); MCV 87.8 fL (80.0-100.0); MEAN PLATELET VOLUME 8.9 fL (7.4-10.4); MONOCYTES 14.4 % (2-11); NEUTROPHILS 51.5 % (40-80); PLATELET COUNT 258 10x3/uL (130-400); RBC 3.76 10x6/uL (4.20-6.10); RDW 13.8 % (11.5-14.5); WBC 5.9 10x3/uL (4.8-10.8)
[2017-08-17 05:57] LABS: CALC OSMOLALITY 275 mosm/kg (275-300); CALCIUM 8.3 mg/dL (8.5-10.1); CARBON DIOXIDE 26.6 mmol/L (21.0-32.0); CHLORIDE - SERUM 102 mmol/L (98-107); CREATININE - SERUM 0.9 mg/dL (0.6-1.3); GLUCOSE 103 mg/dL (74-106); SODIUM 138 mmol/L (136-145); UREA NITROGEN 12 mg/dL (7-18); eGFR NON AFRICAN AMERICAN 87 mL/min (90-120)
--- NOTE | 2017-08-17 06:07 | NUR ---
PT LYING IN BED. EYES CLOSED. CHEST RISING AND FALLING. BED IN LOWEST POSTION AND CALL LIGHT WITHIN REACH.
--- NOTE | 2017-08-17 07:30 | NUR ---
ASSESSMENT COMPLETED.ALERT, ORIENTED. DENIES ANY NEEDS. DRSG TO LEFT UPPER BACK WITH DRSG DRY AND INTACT. NO TELEMERTY OR O2. WILL MONITOR
[2017-08-17 08:07] VITALS: BP 147/61
--- NOTE | 2017-08-17 09:48 | NUR ---
RESTING QUIETLY NAD NOTED
[2017-08-17 11:53] VITALS: BP 125/50
[2017-08-17 14:21] LABS: AFB SPECIMEN PROCESSING Concentration (())
--- NOTE | 2017-08-17 18:47 | NUR ---
LYING QUIETLY. DENIES ANY NEEDS. BED ALARM ON. WILL MONITOR
--- NOTE | 2017-08-17 19:52 | NUR ---
PT IN BED RESTING QUIETLY. DENIES ANY PAIN OR NEEDS AT THIS TIME. BED RAILS UP X2. BED ALARM ON. CALL LIGHT WITHIN REACH. WILL CTM.
[2017-08-17 20:24] VITALS: BP 153/43
[2017-08-18 00:12] VITALS: BP 130/46
--- NOTE | 2017-08-18 01:34 | NUR ---
PT IN BED RESTING QUIETLY WITH EYES CLOSED. BED IN LOW POSITION, CALL LIGHT WITHIN REACH. BED ALARM ON. WILL CPOC.
[2017-08-18 05:17] VITALS: BP 137/45
[2017-08-18 05:53] LABS: BASOPHILS 0.5 % (0-2); EOSINOPHILS 1.3 % (0-7); HEMATOCRIT 33.8 % (42.0-54.0); HEMOGLOBIN 10.9 g/dL (13.5-17.5); IMMATURE GRANULOCYTES 1.3 % (0-5); LYMPHOCYTES 27.8 % (15-50); MCH 28.4 pg (26.0-34.0); MCHC 32.2 g/dL (31.0-37.0); MEAN PLATELET VOLUME 8.6 fL (7.4-10.4); MONOCYTES 12.4 % (2-11); NEUTROPHILS 56.7 % (40-80); PLATELET COUNT 268 10x3/uL (130-400); RBC 3.84 10x6/uL (4.20-6.10); RDW 13.6 % (11.5-14.5); WBC 6.2 10x3/uL (4.8-10.8)
[2017-08-18 06:27] LABS: CALC OSMOLALITY 278 mosm/kg (275-300); CALCIUM 8.3 mg/dL (8.5-10.1); CARBON DIOXIDE 28.3 mmol/L (21.0-32.0); CHLORIDE - SERUM 103 mmol/L (98-107); GLUCOSE 92 mg/dL (74-106); POTASSIUM - SERUM 3.7 mmol/L (3.5-5.1); SODIUM 139 mmol/L (136-145); UREA NITROGEN 15 mg/dL (7-18); eGFR NON AFRICAN AMERICAN 77 mL/min (90-120)
--- NOTE | 2017-08-18 07:30 | NUR ---
REPORT RECEIVED. RR EVEN AND UNLABORED. PT DENIES NEEDS AT THIS TIME. ASSESSMENT PERFORMED. WILL CTM.
[2017-08-18] MEDS ORDERED: MAXIPIME 1 GM/D51 G1 IM (08:03)
[2017-08-18] MEDS ORDERED: LEVAQUIN750 MG PO (08:04)
[2017-08-18 08:22] VITALS: BP 140/43
[2017-08-18] MEDS ORDERED: SYNTHROID175 MCG PO (08:31)
[2017-08-18] MEDS ORDERED: LIDOCAINE HC10 MG/M3 IM (08:31)
--- NOTE | 2017-08-18 08:32 | NUR ---
@0803, CALL PLACED TO CAN, CLINICAL [facility] FOR THE [facility]. PER DR DURAND REQUEST, ASKED IF THEY WOULD BE ABLE TO DO IM MAXIPIME Q8H UNTIL COURSE OF TX COMPLETED. SHE STATED SHE WILL TALK WITH THE DON AND CALL ME BACK. @0811, CAN CALLED BACK AND SAID IT WOULD BE NO PROBLEM. SHE QUESTIONED TO IF THE PATIENT WOULD NEED THE VAN OR AMBULANCE. EXPLAINED THAT I HAD NOT HONESTLY LAID EYES ON THE PATIENT SINCE LAST WEEK. TOLD HER I WOULD FIND OUT AND CALL HER BACK. @ 0830, CALLED CAN BACK LETTING HER KNOW THE PATIENT WOULD BE ABLE TO RIDE IN THE VAN. SHE STATED SHE WOULD CALL BACK WITH A VAN TIME.
--- NOTE | 2017-08-18 08:46 | NUR ---
PER CAN, THE PATIENT WILL BE GOING BACK TO A SNF BED AT THE [facility] AND THEY WILL BE HERE IN AN HOUR TO PICK HIM UP.
--- NOTE | 2017-08-18 08:58 | NUR ---
PT IS TO BE D/C BACK TO [facility]. CALLED REPORT TO ALLAN AT [facility]. WILL COMPELTE D/C PAPER WORK AND CTM.
--- NOTE | 2017-08-18 09:03 | NUR ---
ATTEMPTED TO CALL EARNEST PHILLIPS AT WORK. LEFT HER A MESSAGE REGARDING PT D/C.
--- NOTE | 2017-08-18 09:22 | NUR ---
EARNEST CHANDLER RETURNED PHONE CALL. REQUESTING TO KNOW BIOPSY RESULTS. READ RESUTLS EXACTLY THEY WERE WRITTEN PER THE PHYSICIAN. EXPLAINED THAT I COULD NOT EXPLAIN THE REPORT BUT I COULD READ IT. POA VERBALIZED UNDERSTANDING.
--- NOTE | 2017-08-18 10:00 | NUR ---
JUANA LUZ HERE TO MECHANICAL SPREADER OPERATOR PT. GAVE D/C PAPERWORK TO TRANSPORTER. PRIMARY CARE NURSE PRACTITIONER IN ROOM ASSISTING PT TO GET READY TO GO. WILL BE LEAVING VIA WHEELCHAIR.
[2017-08-18 10:18] LABS: FUNGUS STAIN Final report (())
--- NOTE | 2017-08-25 08:19 | DS ---
PATIENT:MONIK EPÑALOZA :40 MEDICAL RECORD: [id number] DISCHARGE SUMMARY ADMISSION DATE: 08/09/17 DISCHARGE DATE: 08/18/17 DATE OF ADMISSION: 08/09/2017 DATE OF DISCHARGE: 08/18/2017 ADMISSION DIAGNOSES: Bacteriuria, febrile illness, leukocytosis, history of seizure disorder, hypothyroidism, dementia. DISCHARGE DIAGNOSES: Lung mass, atrial fibrillation, altered mental status, dementia, hypothyroid, urinary tract infection with MRSE. HOSPITAL COURSE: The patient had a complex hospital course. Pulmonology was consulted. Interventional radiology consulted for CT-guided biopsy. Biopsy was consistent with organizing pneumonia, no malignancy on evaluation. Antibiotics as recommended by pulmonology. The patient had episode of atrial fibrillation and started on medications, stable on current medications. No distress. Anxious to go home. Agree with assessments by specialist, consults. PHYSICAL EXAMINATION: VITAL SIGNS ON DISCHARGE: Temperature 97.9, blood pressure 137/45 and stable, heart rate stable at 51, respirations 20. GENERAL: The patient is alert, oriented, tolerating regular diet, no acute distress. DISCHARGE INSTRUCTIONS: He will follow up with pulmonology, Dr. Brock. [facility]. Please see chart for details of this complex case. TRANSINT:[id number] Voice Confirmation ID: [id number] DOCUMENT ID: [id number] MONICA BOYER DO at 0819 CC: [id number] DICTATION DATE: 08/18/17 08 DISTRIBUTION TECHNICIAN: 08/18/17 1045 DIS IN 08/18/17 [id number] [place] [address]
--- NOTE | 2017-08-25 10:35 | CN ---
PATIENT NAME:MONIK CLARK MEDICAL RECORD: [id number] : 40 LOCATION:D. D.2134 ADMIT DATE: 08/09/17 ACCOUNT: [id number] CONSULTING PHYSICIAN: STEPHY COX MD REFERRING PHYSICIAN: MARY ARCE MD DATE OF CONSULTATION: 08/11/2017 CONSULT REQUESTING PHYSICIAN: Dr. Eugene Cortez. REASON FOR CONSULTATION: Mass, left lower lobe, left pleural effusion. HISTORY OF PRESENT ILLNESS: Mr. Clark is a 77-year-old gentleman who has a history of dementia, very poor historian. The history was taken by talking to a nursing staff, reviewing the patient's note. The patient was admitted on 08/09/2017, after having a fall as well as a fever of 102. He has significant leukocytosis. He was admitted with a febrile illness. The source was not known. He had a CT scan of the chest today, which showed a mass in the left lower lobe. REVIEW OF SYSTEMS: Mainly in the history of present illness. PAST MEDICAL HISTORY: 1. Dementia. 2. Hypothyroidism. 3. Gastroesophageal reflux disease. 4. Seizure disorder. 5. Atrial fibrillation. PAST SURGICAL HISTORY: Not obtainable. ALLERGIES: There are no known drug allergies. MEDICATIONS: He is on Xarelto 20 mg a day. PERSONAL AND SOCIAL HISTORY: The patient is a intermediate resident. Smoking and drinking history is unknown. FAMILY HISTORY: Noncontributory. PHYSICAL EXAMINATION: GENERAL: Now, the patient is lying comfortably in bed. He is not in acute distress. VITAL SIGNS: The blood pressure is 139/54, pulse is 57, regular, respirations 18, temperature 99.5, T-max 102 on admission. Pulse ox is 95% on room air. HEENT: Conjunctivae pink, sclerae nonicteric. NECK: Supple. No JVD. CHEST: There are crackles at the left base. No wheezing. HEART: Rhythm regular, normal sound, no murmur. ABDOMEN: Soft. Bowel sounds present. No hepatosplenomegaly. RECTAL: Deferred. EXTREMITIES: No cyanosis, no clubbing, no pedal edema. SKIN: Warm, normal turgor. CENTRAL NERVOUS SYSTEM: The patient is awake and alert, but he is confused. IMAGING: CT scan of the chest, there is a mass in the left lower lobe. There CONSULT REPORT [id number] MONIK CLARK is a small left-sided pleural effusion. There are some nodular opacity in the right mid lung along with major fissure. LABORATORY DATA: CBC: The WBC is 12.6 on admission, hemoglobin 11.3, hematocrit 34.2, platelets 128. Chemistry: Sodium 139, potassium 3.2, BUN is 11, creatinine is 1. IMPRESSION: 1. Mass, left lower lobe, rule out malignant process, would doubt infectious process, the mass is subpleural. 2. Right-sided pulmonary nodules, rule out malignant process, possible infectious process. 3. Left pleural effusion. 4. Atrial fibrillation. 5. Febrile illness with leukocytosis, possible bacteremia. 6. Gastroesophageal reflux disease, possible aspiration pneumonitis. 7. Rule out urinary tract infection. RECOMMENDATIONS: 1. We will follow up on the blood culture. I will discontinue the Rocephin and start her on cefepime and Levaquin to cover for Gram-negative rods. 2. Hold on Xarelto. 3. CT-guided left-sided mass biopsy possible on Monday. There is no family member available. The patient is DNR. Dr. Cortez, thank you for involving me in the care of Mr. Clark. TRANSINT:[id number] Voice Confirmation ID: [id number] DOCUMENT ID: [id number] STEPHY COX MD at 1035 CC: MARY ARCE MD [id number] DICTATION DATE: 08/11/17 170 CORRESPONDENCE CLERK: 08/11/172127 DIS IN 08/18/17 [id number] [place] [address]
[2017-09-13 07:32] LABS: FUNGUS MYCOLOGY CULTURE Final report (())
[2017-10-06 15:21] LABS: ACID FAST CULTURE Negative (()); ACID FAST SMEAR Negative (())
== END 2017-08-18 10:21 | DRG 197 ==
LOC: D.ER 03:07 → D.M2 06:27 → D.SDCHOLD 08-10 16:00 → D.M2 08-10 16:01
PROVIDERS: Emergency Medicine; Family Medicine; Radiology Diagnostic Radiology; ADMIT Family Medicine
PROC: 0BBL3ZX Excision of Left Lung, Percutaneous Approach, Diagnostic (ICD-10-PCS; principal; 2017-08-15 08:00)
DX: J84.89 Other specified interstitial pulmonary diseases (principal); N39.0 Urinary tract infection, site not specified; F03.90 Unspecified dementia, unspecified severity, without behavioral disturbance, psychotic disturbance, mood disturbance, and anxiety; I10 Essential (primary) hypertension; I48.91 Unspecified atrial fibrillation; M54.9 Dorsalgia, unspecified; W19.XXXA Unspecified fall, initial encounter; K21.9 Gastro-esophageal reflux disease without esophagitis; E87.6 Hypokalemia; B95.7 Other staphylococcus as the cause of diseases classified elsewhere; D64.9 Anemia, unspecified; Z66 Do not resuscitate; I95.9 Hypotension, unspecified; E03.9 Hypothyroidism, unspecified; S20.212A Contusion of left front wall of thorax, initial encounter; E11.9 Type 2 diabetes mellitus without complications

== ENCOUNTER 2017-09-16 20:07 | Inpatient (IN) | payer MEDICARE, MEDICAID ==
[~2017-09-16] VITALS: Ht 172.7 cm; Wt 72.6 kg
[~2017-09-16 20:07] MED LIST changes: +ARICEPT10 MG PO; +CIMETIDINE200 MG PO; +DEPAKOTE125 MG PO; +DILANTIN50 MG PO; +LEVAQUIN750 MG PO; +LIDOCAINE HC10 MG/M3 IM; +MAXIPIME 1 GM/D51 G1 IM; +SYNTHROID175 MCG PO; +TRAZODONE HCL50 MG PO; +XARELTO20 MG PO
[2017-09-16 20:55] LABS: BASOPHILS 0.3 % (0-2); EOSINOPHILS 4.9 % (0-7); HEMATOCRIT 31.9 % (42.0-54.0); HEMOGLOBIN 10.1 g/dL (13.5-17.5); IMMATURE GRANULOCYTES 0.4 % (0-5); LYMPHOCYTES 17.5 % (15-50); MCH 28.4 pg (26.0-34.0); MCHC 31.7 g/dL (31.0-37.0); MCV 89.6 fL (80.0-100.0); MEAN PLATELET VOLUME 10.1 fL (7.4-10.4); MONOCYTES 10.8 % (2-11); NEUTROPHILS 66.1 % (40-80); PLATELET COUNT 122 10x3/uL (130-400); RBC 3.56 10x6/uL (4.20-6.10); RDW 14.6 % (11.5-14.5); WBC 7.6 10x3/uL (4.8-10.8)
[2017-09-16 21:03] LABS: APTT 26.8 SECONDS (22.8-39.4); INR 1.37 (0.85-1.17); PROTIME 16.8 SECONDS (11.6-15.0)
[2017-09-16 21:09] LABS: ALBUMIN 2.9 g/dL (3.4-5.0); ANION GAP 12.2 mmol/L (8-16); BILIRUBIN - TOTAL 0.31 mg/dL (0.2-1.3); CALCIUM 8.2 mg/dL (8.5-10.1); CARBON DIOXIDE 24.8 mmol/L (21.0-32.0); CREATININE - SERUM 1.3 mg/dL (0.6-1.3); PROTEIN - SERUM 7.2 g/dL (6.4-8.2)
[2017-09-16 21:39] LABS: APPEARANCE CLEAR (CLEAR); COLOR DK YELLOW (YELLOW)
[2017-09-16 21:40] LABS: BILIRUBIN NEGATIVE (NEGATIVE); GLUCOSE NEGATIVE (NEGATIVE); KETONE NEGATIVE (NEGATIVE); NITRITE NEGATIVE (NEGATIVE); PROTEIN TRACE mg/dL (NEGATIVE); UROBILINOGEN NORMAL (NORMAL)
[2017-09-16 21:42] LABS: BACTERIA FEW /hpf (NONE SEEN); RED CELLS - URINE 0-5 /hpf (0-5); WHITE CELLS - URINE OCC /hpf (0-5)
[2017-09-16 23:18] VITALS: BP 138/46; BMI 24.3
--- NOTE | 2017-09-17 03:25 | NUR ---
ASSESSED AT THE TIME OF ARRIVAL FROM ER. PT IS ALERT AND ABLE TO VERBALIZE NEEDS BUT HAS DEMEMTIA AND IS NOT GOOD WITH TIMES, DATES OR WHAT IS GOING ON. HE HAS A URINAL AT HE BEDSIDE AND WE ARE ASSISTING WITH TURNING. HE HAS PAIN IN HIS LEFT HIP WHEN HE MOVES BUT IS NOT IN PAIN WHEN HE IS STILL. AT THIS TIME HE IS ASLEEP WITH NO DISTRESS AND EASY RESPIRATIONS. THERE IS A DEISI ALARM IN PLACE AND THE BED IS LOW, RAILS UP X'S 2 WITH THE CALL LIGHT AT HAND.
[2017-09-17 04:00] VITALS: BP 153/55
[2017-09-17 08:54] VITALS: BP 147/57
--- NOTE | 2017-09-17 09:17 | NUR ---
PT CONFUSED AT THIS TIME IV TO LEFT HAND PATENT AND INTACT AT THIS TIME PT HERE FOR LEFT HIP FRACTURE FOR THIS VISIT SRX2 BED IN LOWEST POSITION AT THIS TIME POSIALARM ACTIVE AT THIS TIME
--- NOTE | 2017-09-17 09:45 | NUR ---
SPOKE TO HEBER AT THE [facility] WHERE PT RESIDES, STATED NUMBER FOR CHRIS CHANDLER IS [phone] UPDATED PT NUMBER IN SYSTEM. PER DR WADE, PT WILL HAVE SURGERY TODAY, WILL CALL AND LET FAMILY KNOW, PAPERS NEED TO BE SIGNED WELL
--- NOTE | 2017-09-17 11:50 | NUR ---
WENT OVER WITH PT WHY HE WAS HERE, PT STATWED HE KNEW HE HAD FALLEN AND ADVISED HIM POSSIBLE SURGERY TI BE DONE TODAY, PT WAS CONFUSED TO WHAT LATEX OR ANESTHESIA WAS. CALLED AND LEFT ANOTHER MESSAGE FOR CHRIS
--- NOTE | 2017-09-17 13:34 | NUR ---
PT ALAN CHANDLER CAME IN AND SIGNED CONSENTS FOR PT TO HAVE SURGERY.
--- NOTE | 2017-09-17 14:48 | NUR ---
RECIEVED CALL TO PRE OP PT FOR SURGERY, CALLED AND LEFT MESSAGE FOR POA SHE REQUESTED THIS AFTER SIGNING HIS CONSENT PAPERWORK. LEFT MESSAGE THAT PT WILL BE GOING BACK SOON
[2017-09-17 19:48] VITALS: BP 144/78
--- NOTE | 2017-09-17 19:48 | NUR ---
REC'D PATIENT FROM RECOVERY. NO VISIBLE SIGNS OF DISTRESS. PATIENT DENIES NEEDS AT THIS TIME. BED IN LOWEST POSITION, CALL LIGHT WITHIN REACH, AND BED ALARM ON. ENCOURAGED THE PATIENT TO CALL IF HE HAS NEEDS.
[2017-09-17 20:05] VITALS: BP 140/86
[2017-09-18 00:35] VITALS: BP 157/63
--- NOTE | 2017-09-18 03:54 | NUR ---
BLADDER SCAN REVEALED 428
[2017-09-18 04:00] VITALS: BP 121/48
[2017-09-18 04:30] LABS: BASOPHILS 0.2 % (0-2); EOSINOPHILS 5.6 % (0-7); HEMATOCRIT 33.1 % (42.0-54.0); HEMOGLOBIN 10.4 g/dL (13.5-17.5); IMMATURE GRANULOCYTES 0.3 % (0-5); LYMPHOCYTES 28.1 % (15-50); MCH 28.3 pg (26.0-34.0); MCHC 31.4 g/dL (31.0-37.0); MCV 89.9 fL (80.0-100.0); MEAN PLATELET VOLUME 10.3 fL (7.4-10.4); MONOCYTES 10.7 % (2-11); NEUTROPHILS 55.1 % (40-80); RBC 3.68 10x6/uL (4.20-6.10); RDW 14.3 % (11.5-14.5); WBC 6.1 10x3/uL (4.8-10.8)
[2017-09-18 04:33] LABS: PLATELET COUNT 152 10x3/uL (130-400)
[2017-09-18 04:40] LABS: ANION GAP 14.9 mmol/L (8-16); CALCIUM 7.7 mg/dL (8.5-10.1); CARBON DIOXIDE 24.4 mmol/L (21.0-32.0); CREATININE - SERUM 1.1 mg/dL (0.6-1.3); POTASSIUM - SERUM 4.3 mmol/L (3.5-5.1)
--- NOTE | 2017-09-18 05:54 | NUR ---
IN AND OUT CATH 400 ML
--- NOTE | 2017-09-18 05:54 | NUR ---
BLADDER SCANNER REVEALED 603 ML
--- NOTE | 2017-09-18 06:48 | HP ---
PATIENT: MONIK PEÑALOZA MEDICAL RECORD: [id number] ACCOUNT: [id number] LOCATION:D.MS [address]2225 : 40 ADMISSION DATE: 09/16/17 HISTORY AND PHYSICAL EXAMINATION DATE OF ADMISSION: 09/16/2017 CHIEF COMPLAINT: Suspected left hip fracture. HISTORY OF PRESENT ILLNESS: The patient is a 77-year-old gentleman who resides at [facility] [place] [facility]. He has no PCP on staff here. The patient was evaluated and found to have left hip fracture. The patient was admitted to my service on unassigned medicine. His past history is very difficult to obtain secondary to history of dementia. He apparently has diabetes mellitus, hypothyroidism, cholecystectomy, history of seizure disorder, atrial fibrillation, and recent history of pneumonia. MEDICATIONS: His medications do include levothyroxine 175 mcg once a day, Tagamet 200 mg daily, Keppra 500 mg p.o. b.i.d., Desyrel 50 mg p.o. at bedtime, primidone 50 mg p.o. b.i.d., Dilantin 100 mg p.o. q. day and 150 mg p.o. b.i.d., Depakote 125 mg p.o. b.i.d., sotalol 80 mg p.o. b.i.d., diltiazem 60 mg p.o. b.i.d., and Flomax 0.4 mg once a day. The patient is also on Xarelto 20 mg one p.o. daily. ALLERGIES: The patient has no known drug allergies. HABITS: The patient denies any ethanol or tobacco use or abuse. FAMILY HISTORY: Cannot be ascertained from the patient. REVIEW OF SYSTEMS: CONSTITUTIONAL: He denies any headache, seizure or syncope. He denies change in visual or auditory acuity. PULMONARY: He denies any shortness of breath, cough, congestion, history of TB, asthma, or bronchitis. CARDIOVASCULAR: No chest pain, palpitation, PND, or orthopnea. GASTROINTESTINAL: No chronic nausea, vomiting, melena, or hematochezia. GENITOURINARY: No urgency, frequency, or hematuria. PHYSICAL EXAMINATION: GENERAL: He is a very well-nourished and well-developed male, who is a poor historian. VITAL SIGNS: He is afebrile. His vital signs are stable. HEENT: His head is normocephalic. No lesions. Ears; TMs are clear. Eyes; pupils are equal, round, and reactive to light. His extraocular movements are intact. Nasal cavity, oral cavity, and oropharynx are clear. NECK: Supple. There is no adenopathy. HEART: Regular rate. No murmurs, gallops, or rubs. LUNGS: Clear. ABDOMEN: Soft. Bowel sounds positive. No organomegaly. GENITAL AND RECTAL: Deferred. MUSCULOSKELETAL: The patient does have tenderness over the greater trochanter of the left hip. Pain with internal and external rotation. LABORATORY DATA: His urinalysis was unremarkable. White count 7.1, hemoglobin HISTORY AND PHYSICAL [id number] ANABELAMONIK 10.1, hematocrit 31.9, and his platelets are 122. Sodium is 140, potassium 4, chloride is 107, CO2 is 24.8, BUN is 25, and creatinine of 1.3. The patient's glucose is elevated at 172. He had an INR of 1.37. DIAGNOSTIC DATA: The patient had a chest x-ray. His chest x-ray showed near complete resolution on previous exam of rounded focus of air disease in the left lower lung. Also a had CT scan of the head. CT scan showed no acute intracranial abnormalities. It demonstrated generalized cerebral atrophy is present. The patient had acute mildly displaced left femoral neck fracture. EKG showed sinus rhythm, rate is 62. ASSESSMENT: Status post fall with left femoral neck fracture; history of atrial fibrillation, currently in normal sinus rhythm; dementia; hypothyroidism; history of seizure disorder; and BPH. PLAN: The patient is admitted. Pain control. Also orthopedic consultation will be obtained for open reduction and internal fixation of left greater trochanter. TRANSINT:[id number] Voice Confirmation ID: [id number] DOCUMENT ID: [id number] MARY ARCE MD at 0648 CC: [id number] DICTATION DATE: 09/17/17849 MAINSTREAMING FACILITATOR: 09/17/17 1019 ADM IN [address] [place] [address]
--- NOTE | 2017-09-18 07:35 | NUR ---
ASSESSMENT COMPLETE. IV TO L HAND PATENT. NS INFUSING AT 125 CC/HR VIA PUMP. DRESSING TO L HIP INTACT. O2 2L NC IN USE. TEDS AND SCDS IN USE. DEISI ALARM IN USE. CONFUSED. ORIENTED TO SELF ONLY.
[2017-09-18 08:29] VITALS: BP 132/75
--- NOTE | 2017-09-18 10:05 | NUR ---
Patient Name: MONIK PEÑALOZA Admission Status: ER Accout number: [id number] Admission Date: 09-16-2017 : 1940 Admission Diagnosis: Attending: MARY ARCE Current LOS: 2 Anticipated DC Date: 09-20-2017 Planned Disposition: Nursing Facility [facility] Primary Insurance: [facility] Discharge Planning Comments: CM CALLED THE [facility] WHERE PATIENT IS A RESIDENT REGARDING D/C NEEDS AND PLANS. PATIENT WILL RETURN TO FACILTY AT DISCHARGE BY FACILITY VAN. PATIENT HAS DEMENTIA AND HE USES A WHEELCHAIR DAILY. PATIENT CAN TRANSFER HIMSELF PER FACILITY STAFF. PATIENTS PCP IS DR. ABDI AND PHARMACY IS IN HOUSE. CM WILL CONTINUE TO FOLLOW PATIENT WITH D/C NEEDS AND PLANS. PCP DR. ABDI IN HOUSE PHARMACY ORI CHANDLER ([facility]) [phone] [employer] Manager: Noemi Maureen Is the patient Alert and Oriented? No 0 * How many steps to enter\exit or inside your home? 0 0 * PCP DR. ABDI 0 * Pharmacy IN HOUSE AT [facility] 0 * Preadmission Environment [facility] 0 * Facility Name [facility] 0 * ADLs Partial Dependent 0 * Partial ADLs (Assistance needed) Ambulation Bathing Dressing Medication Management Toileting Transfers 0 * Equipment Wheelchair 0 * Other Equipment FACILITY HAS IF NEEDED 0 * List name and contact numbers for known caregivers / representatives who currently or will assist patient after discharge: ORI CHANDLER ([place]) [phone], [phone] * Community resources currently utilized None 0 * Additional services required to return to the preadmission environment? Yes 0 * Can the patient safely return to the preadmission environment? Yes 0 * Has this patient been hospitalized within the prior 30 days at any hospital? No 0 Grand Total: 0
--- NOTE | 2017-09-18 10:20 | NUR ---
DRESSING TO L HIP CHANGED. INCISION WELL APPROXIMATED AND HEALING WELL. INCISION COVERED WITH ADAPTIC AND OPSITE.
[2017-09-18 12:05] VITALS: BP 157/58
--- NOTE | 2017-09-18 13:00 | NUR ---
CONTINUES TO TRY TO CLIMB OUT OF BED. DEISI ALARM IN USE.
--- NOTE | 2017-09-18 13:02 | OP ---
PATIENT NAME: MONIK CLARK MEDICAL RECORD: [id number] :40 LOCATION:D.MS Richardson2225 ADMISSION DATE:09/16/17 SURGEON: AICHA WADE DO DATE OF OPERATION: 09/17/2017 PROCEDURE PERFORMED: Left sada hip arthroplasty. PREOPERATIVE DIAGNOSIS: Left femoral neck fracture. POSTOPERATIVE DIAGNOSIS: Left femoral neck fracture. INDICATIONS: Mr. Clark is a 77-year-old very pleasantly demented male, who fell, he thinks a couple days ago while sitting onto his left hip and he sustained a left femoral neck fracture. He could not bear weight and was taken to the Emergency Room. He seem to have the said fracture. He was admitted to the hospital overnight and Xarelto was stopped. Consent was obtained from Rhoda Liang, who is the power of employment law attorney for a left sada hip arthroplasty. The risks and benefits were discussed with her. DESCRIPTION OF PROCEDURE: The patient was taken to the operative suite, laid in supine position, and given 2 grams of Ancef prior to the surgery. Once this was done, a timeout was performed. After the timeout was performed, the left lower extremity FAVIO hose was placed up to the knee and then Webril was placed over that, and then a Coban was placed over that and then placed into the boot for the anterior head table. Once this was done, the patient was placed over on the table and then slid down to the peroneal post and the patient prior to this had been intubated and sedated. Once he was in good position, the left hip was prepped and draped in a sterile fashion and a timeout had already been performed. The procedure then commenced with incision over the tensor fascia vincent muscle. The skin was incised with a #10 blade and then careful dissection was made down with a plasma knife and any bleeders were coagulated quickly as the patient had been on Xarelto. There was not a lot of bleeding encountered. The tensor fascia vincent fascia was then found and divided over the muscle belly and then superiorly from the muscle anteriorly and the muscle belly posteriorly. Adson Robert was then placed when the fascia over the rectus femoris was found and incised. The Adson Robert was then turned to a more vertical position pushing the tensor fascia vincent laterally and the rectus medially. The vessels of the ascending branch of the lateral femoral circumflex were encountered and identified, tied off, and coagulated as well with Aquamantys. Once this was done, the fat pad over the hip capsule was removed. Two 45-degree Hohmann were then used on either side of the neck of the femur and a capsulotomy was performed. Once capsulotomy was performed, the Hohmann were moved intracapsularly and a neck cut was made on the femur. Once the neck cut was made, the head was removed and the extra neck piece of bone was also removed. It was sized to be a 50. A trial was then sized and seemed to be indeed a 50. An exposure of the femur was then done and a Handle cutter was used to enter the canal and then a canal finder. Broaches were then broached up to a 4 at one point, were down far enough and then a 3 was used to be in good position. The hip was reduced and once we saw that it was reduced well, we decided to cement in a 2. The cement restrictor was then placed on the femur and the cement was put down the femoral canal with 2 cement restrictor and then pressurized. A 2 stem was then pushed into the canal and excess cement was removed and the 2 stem was held into place while the cement hardened. Once it had hardened, any extra cement was irrigated out and flushed out. The wound was all inspected to make sure that excess cement had all been removed. We then put OPERATIVE REPORT [id number] MONIK CLARK the neck and head on the bipolar head and the hip was reduced. X-rays were taken confirming it to be in good position as well as the cement was in good position down the femur. The wound was then thoroughly irrigated. The capsule was then closed with #2 Ethibond in a [id number] fashion and then Amber was placed into the wound and the tensor fascia vincent fascia was closed with first 2 [id number] stitches of #1 Vicryl and then a running locking stitch with a #1 Vicryl and the skin was then closed with 2-0 Vicryl in an inverted interrupted fashion. Skin was closed with Prineo Dermabond and Telfa and Tegaderm were then placed over the wound. The patient was awakened and taken to recovery in stable condition. ESTIMATED BLOOD LOSS: 150 mL. COMPLICATIONS: None. TRANSINT:[id number] Voice Confirmation ID: [id number] DOCUMENT ID: [id number] AICHA WADE DO at 1302 CC: [id number] DICTATION DATE: 09/17/171923 LOG SCALER: 09/17/172125 ADM IN [facility] [id number]
[2017-09-18 14:08] VITALS: Ht 172.7 cm; Wt 72.6 kg
[2017-09-18 16:14] VITALS: BP 131/53
--- NOTE | 2017-09-18 16:30 | NUR ---
PATIENT STATES HE HAS URINATED THIS SHIFT. STAFF HAS NOT EMPTIED URINAL THIS SHIFT. BLADDER SCAN PERFORMED. RESULTED 217 CC'S OF URINE.
--- NOTE | 2017-09-18 18:50 | NUR ---
RESTING QUIETLY WITH EYES CLOSED. RESP EVEN,NONLABORED.
--- NOTE | 2017-09-18 19:52 | NUR ---
PATIENT RESTING IN BED WITH EYES CLOSED AND NO VISIBLE SIGNS OF DISTRESS. BED IN LOWEST POSITION, CALL LIGHT WITHIN REACH, AND BED ALARM ON.
[2017-09-18 20:00] VITALS: BP 150/52
[2017-09-19 04:35] LABS: BASOPHILS 0.2 % (0-2); EOSINOPHILS 7.5 % (0-7); HEMATOCRIT 29.4 % (42.0-54.0); HEMOGLOBIN 9.4 g/dL (13.5-17.5); IMMATURE GRANULOCYTES 0.3 % (0-5); LYMPHOCYTES 32.1 % (15-50); MCH 28.4 pg (26.0-34.0); MCV 88.8 fL (80.0-100.0); MEAN PLATELET VOLUME 10.2 fL (7.4-10.4); MONOCYTES 13.8 % (2-11); NEUTROPHILS 46.1 % (40-80); PLATELET COUNT 152 10x3/uL (130-400); RBC 3.31 10x6/uL (4.20-6.10); RDW 14.3 % (11.5-14.5); WBC 6.4 10x3/uL (4.8-10.8)
[2017-09-19 04:51] LABS: CALC OSMOLALITY 276 mosm/kg (275-300); CALCIUM 7.9 mg/dL (8.5-10.1); CARBON DIOXIDE 24.1 mmol/L (21.0-32.0); CHLORIDE - SERUM 103 mmol/L (98-107); GLUCOSE 100 mg/dL (74-106); SODIUM 138 mmol/L (136-145); UREA NITROGEN 16 mg/dL (7-18); eGFR NON AFRICAN AMERICAN 77 mL/min (90-120)
[2017-09-19 04:55] LABS: POTASSIUM - SERUM 3.3 mmol/L (3.5-5.1)
--- NOTE | 2017-09-19 07:50 | NUR ---
ASSESSMENT COMPLETE. ORIENTED TO SELF ONLY. IV TO L HAND WITH SWELLING NOTED. IV REMOVED. CATHETER TIP INTACT. DRESSING TO L HIP CHANGED. INCISION COVERED WITH ABD PAD AND PRIMAPORE TAPE. FAVIO HOSE IN USE TO L LEG AND SCD TO R LEG.INCONT OF BLADDER AT TIMES. DEISI ALARM IN USE.
[2017-09-19 08:40] VITALS: BP 113/44
--- NOTE | 2017-09-19 11:00 | NUR ---
RESTING QUIETLY. DENIES ANY NEEDS AT THIS TIME.
[2017-09-19 12:45] VITALS: BP 116/53
--- NOTE | 2017-09-19 17:00 | NUR ---
INCONT OF BOWEL AND BLADDER. PATIENT CLEANED AND LINENS CHANGED. IV SITED TO R HAND WITH 22 GUAGE X 1 ATTEMPT. DEISI ALARM IN USE.
--- NOTE | 2017-09-19 18:00 | NUR ---
NO CHANGES NOTED AT PRESENT.
[2017-09-19 19:30] VITALS: BP 143/49
--- NOTE | 2017-09-19 19:39 | NUR ---
PATIENT RESTING IN BED WITH EYES CLOSED AND NO VISIBLE SIGNS OF DISTRESS. BED IN LOWEST POSITION AND CALL LIGHT WITHIN REACH.
[2017-09-19 23:30] VITALS: BP 177/53
--- NOTE | 2017-09-20 03:26 | NUR ---
NOTIFIED BY MANNIE BUCK THAT THE PATIENT PULLED HIS DRESSING OFF OF HIS LEFT HIP AND HIS IV OUT. I PUT A NEW DRESSING ON THE PATIENT'S LEFT HIP
[2017-09-20 04:45] LABS: BASOPHILS 0.2 % (0-2); EOSINOPHILS 3.7 % (0-7); HEMATOCRIT 27.5 % (42.0-54.0); IMMATURE GRANULOCYTES 0.5 % (0-5); MCH 28.5 pg (26.0-34.0); MCHC 32.7 g/dL (31.0-37.0); MEAN PLATELET VOLUME 9.3 fL (7.4-10.4); MONOCYTES 15.5 % (2-11); NEUTROPHILS 57.1 % (40-80); PLATELET COUNT 156 10x3/uL (130-400); RBC 3.16 10x6/uL (4.20-6.10); WBC 5.7 10x3/uL (4.8-10.8)
[2017-09-20 04:55] LABS: CALC OSMOLALITY 274 mosm/kg (275-300); CALCIUM 7.8 mg/dL (8.5-10.1); CARBON DIOXIDE 24.3 mmol/L (21.0-32.0); CHLORIDE - SERUM 103 mmol/L (98-107); GLUCOSE 115 mg/dL (74-106); POTASSIUM - SERUM 3.1 mmol/L (3.5-5.1); SODIUM 137 mmol/L (136-145); UREA NITROGEN 12 mg/dL (7-18)
[2017-09-20 05:00] LABS: CREATININE - SERUM 0.7 mg/dL (0.6-1.3); eGFR NON AFRICAN AMERICAN > 90 mL/min (90-120)
[2017-09-20 08:44] VITALS: BP 158/44
[2017-09-20 12:09] VITALS: BP 139/53
[2017-09-20 16:16] VITALS: BP 126/58
[2017-09-20 21:51] VITALS: BP 123/54
[2017-09-20 23:45] VITALS: BP 129/46
[2017-09-21 04:00] VITALS: BP 122/60
[2017-09-21 04:18] LABS: BASOPHILS 0.2 % (0-2); EOSINOPHILS 2.6 % (0-7); HEMATOCRIT 26.5 % (42.0-54.0); HEMOGLOBIN 8.7 g/dL (13.5-17.5); IMMATURE GRANULOCYTES 0.6 % (0-5); LYMPHOCYTES 27.6 % (15-50); MCH 28.7 pg (26.0-34.0); MCHC 32.8 g/dL (31.0-37.0); MCV 87.5 fL (80.0-100.0); MEAN PLATELET VOLUME 9.6 fL (7.4-10.4); PLATELET COUNT 179 10x3/uL (130-400); RBC 3.03 10x6/uL (4.20-6.10); RDW 14.4 % (11.5-14.5); WBC 5.3 10x3/uL (4.8-10.8)
[2017-09-21 04:20] LABS: CALC OSMOLALITY 274 mosm/kg (275-300); CALCIUM 7.9 mg/dL (8.5-10.1); CARBON DIOXIDE 25.8 mmol/L (21.0-32.0); CHLORIDE - SERUM 104 mmol/L (98-107); CREATININE - SERUM 0.8 mg/dL (0.6-1.3); GLUCOSE 103 mg/dL (74-106); POTASSIUM - SERUM 3.1 mmol/L (3.5-5.1); SODIUM 138 mmol/L (136-145); UREA NITROGEN 11 mg/dL (7-18); eGFR NON AFRICAN AMERICAN > 90 mL/min (90-120)
[2017-09-21] MEDS ORDERED: K-DUR20 MEQ PO (06:52)
[2017-09-21] MEDS ORDERED: SLOW RELEASE I160 MG PO (06:55)
--- NOTE | 2017-09-21 07:35 | NUR ---
PT AOX4 RESP EVEN AND NONLABORED PT DENIES NEEDS AT THIS TIME SRX2 BED AT LOWEST SETTING CALL LIGHT WITHIN REACH WILL CONTINUE TO MONITOR
[2017-09-21 08:37] VITALS: BP 144/50
--- NOTE | 2017-09-21 15:46 | NUR ---
PT REPORT GIVEN TO SONY LOMAS AT THE [facility] AT THIS TIME
--- NOTE | 2017-09-21 17:31 | NUR ---
PT TAKEN VIA WHEELCHAIR VIA FACILITY VAN AT THIS TIME DISCHARGE PAPERWORK SENT WITH PT FOR FACILITY
--- NOTE | 2017-09-22 15:29 | NUR ---
LATE ENTRY: PATIENT DISCHARGED BACK TO THE [facility] TO A SKILLED BED BY FACILITY VAN.
--- NOTE | 2017-11-05 15:25 | DS ---
PATIENT:MONIK PEÑALOZA :40 MEDICAL RECORD: [id number] DISCHARGE SUMMARY ADMISSION DATE: 09/16/17 DISCHARGE DATE: 09/21/17 DATE OF ADMISSION: 09/16/2017 DATE OF DISCHARGE: 09/21/2017 CONDITION ON DISCHARGE: Improved. ADMITTING DIAGNOSES: Status post fall with left femoral neck fracture, history of atrial fibrillation, hypothyroidism, history of seizure disorder, BPH. DISCHARGE DIAGNOSES: Fracture of left femoral neck status post fall, diabetes mellitus, atrial fibrillation, dementia, hypokalemia. PROCEDURE: Open reduction and internal fixation of left hip fracture. CONSULTANTS: Dr. Andrez Castañeda [facility] COURSE: The patient is a 77-year-old gentleman who resides at a local halfway. He had no PCP on staff, he was admitted to my service on unassigned medicine. He had fallen, sustained a left hip fracture. He was admitted, Dr. Castañeda was consulted. The patient did undergo a left hip hemiarthroplasty by Dr. Castañeda. He did well postop. Initially when he was admitted, his hemoglobin was 10.4 and hematocrit was 33.1 and on discharge 8.7 and 26.5. He was slightly low on his potassium at 3.1. He was given supplemental potassium. His sodium was 138, chloride 104, CO2 25.8. His BUN was 11, creatinine 0.8. DISCHARGE MEDICATIONS: On discharge, the patient was to continue his Flomax 0.4 mg once a day, Cardizem 60 mg p.o. b.i.d., Betapace 80 mg p.o. b.i.d., Keppra 500 mg p.o. b.i.d., lactulose 20 mg p.o. every day, Mysoline 50 mg b.i.d., Xarelto 20 mg daily, Dilantin 150 mg p.o. b.i.d. with 100 mg at noon, Tagamet 200mg once a day, Depakote 125 mg b.i.d., trazodone 50 mg p.o. q.h.s., Synthroid 175 mcg once a day, KCl 20 mEq 1 p.o. every day, and ferrous sulfate 160 p.o. b.i.d. DISCHARGE INSTRUCTIONS: The patient was discharged back to the [facility]. He was to continue his current medications. He would be on a regular diet. He was to follow up with his PCP in 1 week to have a potassium level drawn. He was to follow up with ortho on 10/04/2017 at 1:00. TRANSINT:[id number] Voice Confirmation ID: [id number] DOCUMENT ID: [id number] MARY ARCE MD at 1525 CC: [id number] DICTATION DATE: 11/05/17 1308 HOT WALKER: 11/05/17 1506 DIS IN 09/21/17 [address] [place] [address]
== END 2017-09-21 17:32 | DRG 470 ==
LOC: D.ER 20:07 → D.MS 22:31
PROVIDERS: Family Medicine; Orthopaedic Surgery; ADMIT Family Medicine
PROC: 0SRS0J9 Replacement of Left Hip Joint, Femoral Surface with Synthetic Substitute, Cemented, Open Approach (ICD-10-PCS; principal; 2017-09-17 16:32)
DX: S72.002A Fracture of unspecified part of neck of left femur, initial encounter for closed fracture (principal); W18.11XA Fall from or off toilet without subsequent striking against object, initial encounter; E11.9 Type 2 diabetes mellitus without complications; I48.91 Unspecified atrial fibrillation; F03.90 Unspecified dementia, unspecified severity, without behavioral disturbance, psychotic disturbance, mood disturbance, and anxiety; E87.6 Hypokalemia

== ENCOUNTER → 2018-11-05 10:04 | Outpatient (CLI) | payer MEDICARE, MEDICAID ==
[2017-09-18 14:08] VITALS: BMI 24.3
[~2018-11-05 10:04] MED LIST changes: +BACTRIM DS1 TAB PO; +K-DUR20 MEQ PO; +SLOW RELEASE I160 MG PO
== END | disposition home or self-care (01) ==
LOC: D.RT 10:00
DX: R93.89 Abnormal findings on diagnostic imaging of other specified body structures (principal)

== ENCOUNTER 2018-11-16 15:18 | Inpatient (IN) | payer MEDICARE, MEDICAID ==
[~2018-11-16] VITALS: Ht 172.7 cm; Wt 76.4 kg
[~2018-11-16 15:18] MED LIST changes: -BACTRIM DS1 TAB PO
[2018-11-16 15:50] LABS: BASOPHILS 0.1 % (0-2); EOSINOPHILS 0.2 % (0-7); HEMATOCRIT 29.6 % (42.0-54.0); HEMOGLOBIN 8.6 g/dL (13.5-17.5); IMMATURE GRANULOCYTES 0.2 % (0-5); LYMPHOCYTES 3.5 % (15-50); MCH 20.9 pg (26.0-34.0); MCHC 29.1 g/dL (31.0-37.0); MCV 71.8 fL (80.0-100.0); MEAN PLATELET VOLUME 9.2 fL (7.4-10.4); MONOCYTES 2.8 % (2-11); NEUTROPHILS 93.2 % (40-80); PLATELET COUNT 186 10x3/uL (130-400); RBC 4.12 10x6/uL (4.20-6.10); RDW 16.4 % (11.5-14.5); WBC 9.4 10x3/uL (4.8-10.8)
[2018-11-16 16:01] LABS: ALBUMIN 3.1 g/dL (3.4-5.0); ANION GAP 17.2 mmol/L (8-16); BILIRUBIN - TOTAL 0.21 mg/dL (0.2-1.3); CALCIUM 8.5 mg/dL (8.5-10.1); CARBON DIOXIDE 22.6 mmol/L (21.0-32.0); CREATININE - SERUM 1.5 mg/dL (0.6-1.3); POTASSIUM - SERUM 3.8 mmol/L (3.5-5.1); PROTEIN - SERUM 7.4 g/dL (6.4-8.2)
[2018-11-16 16:19] LABS: APPEARANCE CLEAR (CLEAR); BACTERIA FEW /hpf (NONE SEEN); BILIRUBIN NEGATIVE (NEGATIVE); COLOR YELLOW (YELLOW); EPITHELIAL CELLS 0-5 /hpf (0-5); GLUCOSE NEGATIVE (NEGATIVE); KETONE NEGATIVE (NEGATIVE); NITRITE NEGATIVE (NEGATIVE); PROTEIN 1+ mg/dL (NEGATIVE); RED CELLS - URINE OCC /hpf (0-5); SPECIFIC GRAVITY 1.015 (1.005-1.020); UROBILINOGEN NORMAL (NORMAL)
[2018-11-16 16:20] LABS: AMORPHOUS SEDIMENT <1+ /lpf (NONE SEEN)
[2018-11-16 18:24] VITALS: BP 175/53
--- NOTE | 2018-11-16 19:09 | MORECARE ---
CASE MANAGEMENT DISCHARGE SUMMARY PATIENT: MONIK PEÑALOZA UNIT: [id number] ADM DATE: 11/16/18 AGE: 78 : 40 SEX: M ROOM/BED: D.E10 AUTHOR: ALEXANDRU CASAS PHYSICIAN: REFERRING PHYSICIAN: DAVID IVEY DO DATE OF SERVICE: 11/16/18 Discharge Plan Patient Name: MONIK PEÑALOZA [facility] [facility] 1940 Planned Disposition: Anticipated Discharge Date: Discharge Date: Expected LOS: Initial Reviewer: [email or web address] Initial Review Date: 11/16/2018 Generated: 11/16/18 8:09 pm Patient Name: MONIK PEÑALOZA Page [id number] at 1909 All edits/amendments must be made on the electronic document DICTATION DATE: 11/16/181907 POLITICAL ADVISOR: MAYELIN 11/16/181907 RPT#: [id number] DC DATE: STATUS: ADM IN [facility] [address] [place] [address] END OF REPORT
[2018-11-17 01:42] VITALS: BP 118/47
[2018-11-17 04:52] VITALS: BP 111/56; Ht 172.7 cm; Wt 76.4 kg
[2018-11-17 05:22] VITALS: BP 151/91
[2018-11-17 06:36] LABS: BASOPHILS 0.1 % (0-2); EOSINOPHILS 2.6 % (0-7); HEMATOCRIT 25.4 % (42.0-54.0); IMMATURE GRANULOCYTES 0.2 % (0-5); LYMPHOCYTES 10.7 % (15-50); MCH 20.8 pg (26.0-34.0); MCHC 29.1 g/dL (31.0-37.0); MCV 71.3 fL (80.0-100.0); MEAN PLATELET VOLUME 9.3 fL (7.4-10.4); MONOCYTES 11.8 % (2-11); NEUTROPHILS 74.6 % (40-80); PLATELET COUNT 160 10x3/uL (130-400); RBC 3.56 10x6/uL (4.20-6.10); RDW 16.6 % (11.5-14.5); WBC 9.3 10x3/uL (4.8-10.8)
[2018-11-17 06:46] LABS: HEMOGLOBIN 7.4 g/dL (13.5-17.5)
[2018-11-17 06:57] LABS: % SATURATION 5 % (15-55); IRON 16 ug/dl (35-150); TOTAL IRON BIND CAPACITY 298 ug/dl (260-445); UNSAT IRON BIND CAPACITY 282 ug/dl (150-375)
[2018-11-17 07:07] LABS: ANION GAP 11.9 mmol/L (8-16); CALCIUM 7.6 mg/dL (8.5-10.1); CARBON DIOXIDE 24.6 mmol/L (21.0-32.0); PHENYTOIN (DILANTIN) 26.4 ug/mL (10.0-20.0); POTASSIUM - SERUM 3.5 mmol/L (3.5-5.1); THYROID STIMULATING HORMONE 0.21 uIU/mL (0.36-3.74)
[2018-11-17 07:08] LABS: CREATININE - SERUM 1.1 mg/dL (0.6-1.3); VALPROIC ACID (DEPAKOTE) 0.6 ug/mL (50.0-100.0)
[2018-11-17 07:50] VITALS: BP 145/65
[2018-11-17 13:43] VITALS: BP 142/51
--- NOTE | 2018-11-17 14:37 | HP ---
PATIENT: MONIK CLARK MEDICAL RECORD: [id number] ACCOUNT: [id number] LOCATION:[address] : 40 ADMISSION DATE: 11/16/18 PCP: DAVID IVEY DO HISTORY AND PHYSICAL EXAMINATION HISTORY OF PRESENT ILLNESS: Mr. Clark is a 78-year-old gentleman that resides at a local retirement. He was noted today to be having fever and changes in mentation. He is usually out talking with other residents and pretty talkative today. He was noted to be not visiting and answering questions inappropriately. His blood sugar is 127. He is brought to the Emergency Room from the [facility] where he is found to have bad UTI. He also was anemic. He is going to be admitted for further evaluation and therapy. PAST MEDICAL HISTORY: Significant for seizures, diabetes, thyroid disease, atrial fibrillation, kidney stones, BPH. ALLERGIES: None known. HOME MEDICATIONS: Include tamsulosin 0.4 daily, diltiazem 60 b.i.d., sotalol 80 b.i.d., Keppra 500 b.i.d., potassium chloride 20 mEq a day, ferrous sulfate 160 mg b.i.d., Xarelto 20 mg a day, Dilantin 150 in the morning and evening and 100 mg at lunch, cimetidine 200 mg a day, Depakote 125 b.i.d., trazodone 50 at bedtime, levothyroxine 175 mcg a day, lactulose 20 grams daily, and primidone 50 grams b.i.d. FAMILY HISTORY: Significant for neurological disorders and hypertension. SOCIAL HISTORY: The patient does not smoke or drink. REVIEW OF SYSTEMS: He is not much of a historian. He really denies any symptoms at this time. Denies any abdominal pain, chest pain, shortness of breath, swelling. PHYSICAL EXAMINATION: GENERAL: He is well developed. He is in no obvious distress at this time. HEENT: Sclerae is nonicteric. Mucous membranes appear a little dry. NECK: Soft and supple. HEART: Regular. LUNGS: Clear. ABDOMEN: Soft. EXTREMITIES: Lower extremities reveal no edema. IMPRESSION: 1. UTI. 2. Seizure disorder. 3. Diabetes. 4. Hypertension. 5. Anemia of uncertain origin 6. Hypothyroidism. 7. Dementia. 8. Weakness. 9. GERD. PLAN: Admit. IV fluids. Urine culture. IV antibiotics. Check stool studies. Check fit. See orders for rest of plan. HISTORY AND PHYSICAL [id number] MONIK CLARK TRANSINT:[id number] Voice Confirmation ID: [id number] DOCUMENT ID: [id number] DAVID IVEY DO at 1437 CC: [id number] DICTATION DATE: 11/16/182121 ENVIRONMENTAL ENGINEER: 11/16/182157 ADM IN [id number] [place] [address]
[2018-11-17 20:30] VITALS: BP 151/62
[2018-11-18 04:30] VITALS: BP 156/61
[2018-11-18 06:29] LABS: BASOPHILS 0.3 % (0-2); EOSINOPHILS 2.8 % (0-7); HEMATOCRIT 30.2 % (42.0-54.0); IMMATURE GRANULOCYTES 0.3 % (0-5); LYMPHOCYTES 19.2 % (15-50); MCH 22.4 pg (26.0-34.0); MCHC 30.5 g/dL (31.0-37.0); MEAN PLATELET VOLUME 9.9 fL (7.4-10.4); MONOCYTES 14.8 % (2-11); NEUTROPHILS 62.6 % (40-80); PLATELET COUNT 128 10x3/uL (130-400); RBC 4.11 10x6/uL (4.20-6.10); RDW 17.6 % (11.5-14.5); WBC 7.6 10x3/uL (4.8-10.8)
[2018-11-18 06:43] LABS: ALBUMIN 2.6 g/dL (3.4-5.0); ALKALINE PHOSPHATASE 24 U/L (46-116); ALT (SGPT) 39 U/L (10-68); BILIRUBIN - TOTAL 0.15 mg/dL (0.2-1.3); CALCIUM 7.4 mg/dL (8.5-10.1); CARBON DIOXIDE 22.1 mmol/L (21.0-32.0); CHLORIDE - SERUM 112 mmol/L (98-107); CREATININE - SERUM 0.9 mg/dL (0.6-1.3); GLUCOSE 97 mg/dL (74-106); POTASSIUM - SERUM 3.7 mmol/L (3.5-5.1); PROTEIN - SERUM 6.4 g/dL (6.4-8.2); SODIUM 145 mmol/L (136-145); eGFR NON AFRICAN AMERICAN 87 mL/min (90-120)
[2018-11-18 06:44] LABS: HEMOGLOBIN 9.2 g/dL (13.5-17.5); MCV 73.5 fL (80.0-100.0)
[2018-11-18 06:45] LABS: CALC OSMOLALITY 290 mosm/kg (275-300); UREA NITROGEN 19 mg/dL (7-18)
[2018-11-18 07:25] VITALS: BP 143/52
[2018-11-18 21:41] VITALS: BP 189/61
[2018-11-19 00:43] VITALS: BP 166/53
[2018-11-19 04:17] VITALS: BP 183/70
[2018-11-19 05:56] LABS: BASOPHILS 0.3 % (0-2); EOSINOPHILS 2.5 % (0-7); HEMATOCRIT 31.5 % (42.0-54.0); HEMOGLOBIN 9.8 g/dL (13.5-17.5); IMMATURE GRANULOCYTES 0.4 % (0-5); LYMPHOCYTES 18.5 % (15-50); MCH 22.8 pg (26.0-34.0); MCHC 31.1 g/dL (31.0-37.0); MCV 73.3 fL (80.0-100.0); MEAN PLATELET VOLUME 10.5 fL (7.4-10.4); MONOCYTES 12.9 % (2-11); NEUTROPHILS 65.4 % (40-80); PLATELET COUNT 130 10x3/uL (130-400); RDW 18.3 % (11.5-14.5); WBC 7.7 10x3/uL (4.8-10.8)
[2018-11-19 06:16] LABS: ALBUMIN 2.5 g/dL (3.4-5.0); ALKALINE PHOSPHATASE 28 U/L (46-116); ALT (SGPT) 32 U/L (10-68); CALC OSMOLALITY 281 mosm/kg (275-300); CALCIUM 7.7 mg/dL (8.5-10.1); CARBON DIOXIDE 22.2 mmol/L (21.0-32.0); CHLORIDE - SERUM 108 mmol/L (98-107); CREATININE - SERUM 0.8 mg/dL (0.6-1.3); GLUCOSE 124 mg/dL (74-106); POTASSIUM - SERUM 3.4 mmol/L (3.5-5.1); PROTEIN - SERUM 6.6 g/dL (6.4-8.2); SODIUM 141 mmol/L (136-145); eGFR NON AFRICAN AMERICAN > 90 mL/min (90-120)
[2018-11-19 06:18] LABS: UREA NITROGEN 12 mg/dL (7-18)
[2018-11-19 07:45] VITALS: BP 173/54
[2018-11-19 12:12] LABS: FOLATE (FOLIC ACID) - SERUM 3.5 ng/mL (>3.0)
[2018-11-19 13:18] VITALS: BP 187/69
--- NOTE | 2018-11-19 16:54 | MORECARE ---
CASE MANAGEMENT DISCHARGE SUMMARY PATIENT: MONIK PEÑALOZA UNIT: [id number] ADM DATE: 11/16/18 AGE: 78 : 40 SEX: M ROOM/BED: D.2134 AUTHOR: ALEXANDRU CASAS PHYSICIAN: REFERRING PHYSICIAN: DAVID IVEY DO DATE OF SERVICE: 11/19/18 Discharge Plan Patient Name: MONIK PEÑALOZA [facility] [facility] 1940 Planned Disposition: Nursing Facility [facility] Anticipated Discharge Date: 11/19/18 Discharge Date: Expected LOS: 3 Initial Reviewer: [email or web address] Initial Review Date: 11/16/2018 Generated: 11/19/18 5:53 pm Last DP export: 11/16/18 6:09 p Patient Name: MONIK PEÑALOZA Page 67319 at 1654 All edits/amendments must be made on the electronic document DICTATION DATE: 11/19/181652 DESK SERGEANT: MAYELIN 11/19/181652 RPT#: [id number] DC DATE: STATUS: ADM IN [facility] [address] [place] [address] END OF REPORT
--- NOTE | 2018-11-19 17:01 | MORECARE ---
CASE MANAGEMENT DISCHARGE SUMMARY PATIENT: MONIK PEÑALOZA UNIT: [id number] ADM DATE: 11/16/18 AGE: 78 : 40 SEX: M ROOM/BED: D.8404 AUTHOR: YESSENIA,DOC PHYSICIAN: REFERRING PHYSICIAN: DAVID IVEY DO DATE OF SERVICE: 11/19/18 Discharge Plan Patient Name: MONIK PEÑALOZA [facility]:[place] : 1940 Planned Disposition: Nursing Facility [facility] Cert Anticipated Discharge Date: 11/19/18 Discharge Date: Expected LOS: 3 Initial Reviewer: [email or web address] Initial Review Date: 11/16/2018 Generated: 11/19/18 6:00 pm Comments DCP- Discharge Planning Updated by [email or web address]: Jj Terrell on 11/19/18 3:[address] Patient Name: MONIK PEÑALOZA Admission Status: ER Accout number: [id number] Admission Date: 11-16-2018 : 1940 Admission Diagnosis: Attending: DAVID IVEY Current LOS: 3 Anticipated DC Date: 11-19-2018 Planned Disposition: Nursing Facility [facility] Cert Primary Insurance: [facility] MEDICARE SOLUTIONS PLANNED EXTERNAL PROVIDER: [facility], SENIOR LIVING CARE MEDICAID BED Discharge Planning Comments: CM MET WITH PT IN ROOM TO DISCUSS DISCHARGE PLANNING AND NEEDS. PT REPORTS LIVING AT THE [facility] AND WILL RETURN AT DISCHARGE. 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 CM SPOKE TO [place] [facility] WHO VERIFIED THAT PT IS IN SENIOR LIVING CARE AT THE [facility] AND WILL RETURN AT DISCHARGE. CAN WILL CHECK WITH FACILITY TO DETERMINE IF PT IS IN THE [facility] AND NOTIFY CM. FOR DISCHARGE TO THE [facility], FAX DISCHARGE INFORMATION TO THE [facility] AT [phone]; NURSE REPORT TO BE CALLED TO THE [facility] AT [phone]. THE [facility] TO ARRANGE VAN TRANSPORATION. Cloth Examiner: Jj Terrell DCPIA - Discharge Planning Initial Assessment Updated by [id number]: Jj Terrell on 11/19/18 4:55 pm * Is the patient Alert and Oriented? Yes * How many steps to enter\exit or inside your home? NONE * PCP DR. ABDI * Pharmacy [facility] * Preadmission Environment Associate Professor Of Archaeology [employer] * Facility Name [facility] * ADLs Partial Dependent * Partial ADLs (Assistance needed) Ambulation Bathing Medication Management Transfers * Equipment Wheelchair * Other Equipment ALL MEDICAL EQUIPMENT PROVIDED BY FACILITY * List name and contact numbers for known caregivers / representatives who currently or will assist patient after discharge: ORI CHANDLER, COUSIN, * Verbal permission to speak to the caregivers and representatives has been obtained from the patient. N/A * Community resources currently utilized None * Please name any agencies selected above. NONE * Additional services required to return to the preadmission environment? No * Can the patient safely return to the preadmission environment? Yes * Has this patient been hospitalized within the prior 30 days at any hospital? No Last DP export: 11/19/18 3:54 p Patient Name: MONIK PEÑALOZA Page 06390 at 1701 All edits/amendments must be made on the electronic document DICTATION DATE: 11/19/181699 CEMENT PAVER: MAYELIN 11/19/181699 RPT#: [id number] DC DATE: STATUS: ADM IN [facility] [address] [place] [address] END OF REPORT
--- NOTE | 2018-11-19 17:10 | MORECARE ---
CASE MANAGEMENT DISCHARGE SUMMARY PATIENT: MONIK PEÑALOZA UNIT: [id number] ADM DATE: 11/16/18 AGE: 78 : 40 SEX: M ROOM/BED: D.5744 AUTHOR: YESSENIA,DOC PHYSICIAN: REFERRING PHYSICIAN: DAVID IVEY DO DATE OF SERVICE: 11/19/18 Discharge Plan Patient Name: MONIK PEÑALOZA Facility: [facility]:[place] : 1940 Planned Disposition: Nursing Facility [facility] Cert Anticipated Discharge Date: 11/19/18 Discharge Date: Expected LOS: 3 Initial Reviewer: [email or web address] Initial Review Date: 11/16/2018 Generated: 11/19/18 6:10 pm Comments DCP- Discharge Planning Updated by [id number]: Jj Terrell on 11/19/18 3:[address] Patient Name: MONIK PEÑALOZA Admission Status: ER Accout number: [id number] Admission Date: 11-16-2018 : 1940 Admission Diagnosis: Attending: DAVID IVEY Current LOS: 3 Anticipated DC Date: 11-19-2018 Planned Disposition: Nursing Facility [facility] Cert Primary Insurance: [facility] MEDICARE SOLUTIONS PLANNED EXTERNAL PROVIDER: [facility], NURSING HOME CARE MEDICAID BED Discharge Planning Comments: CM MET WITH PT IN ROOM TO DISCUSS DISCHARGE PLANNING AND NEEDS. PT REPORTS LIVING AT THE [facility] AND WILL RETURN AT DISCHARGE. 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 CM SPOKE TO [place] [facility] ST[facility] WHO VERIFIED THAT PT IS IN NURSING HOME CARE AT THE [facility] AND WILL RETURN AT DISCHARGE. CAN WILL CHECK WITH FACILITY TO DETERMINE IF PT IS IN THE [facility] AND NOTIFY CM. FOR DISCHARGE TO THE [facility], FAX DISCHARGE INFORMATION TO THE [facility] AT [phone]; NURSE REPORT TO BE CALLED TO THE [facility] AT [phone]. THE [facility] TO ARRANGE VAN TRANSPORATION. Pin Cleaner: Jj Terrell DCPIA - Discharge Planning Initial Assessment Updated by [email or web address]: Jj Terrell on 11/19/18 4:55 pm * Is the patient Alert and Oriented? Yes * How many steps to enter\exit or inside your home? NONE * PCP DR. ABDI * Pharmacy [facility] * Preadmission Environment White Washer Piler Long Term * Facility Name [facility] * ADLs Partial Dependent * Partial ADLs (Assistance needed) Ambulation Bathing Medication Management Transfers * Equipment Wheelchair * Other Equipment ALL MEDICAL EQUIPMENT PROVIDED BY FACILITY * List name and contact numbers for known caregivers / representatives who currently or will assist patient after discharge: ORI CHANDLER, CHIARA, * Verbal permission to speak to the caregivers and representatives has been obtained from the patient. N/A * Community resources currently utilized None * Please name any agencies selected above. NONE * Additional services required to return to the preadmission environment? No * Can the patient safely return to the preadmission environment? Yes * Has this patient been hospitalized within the prior 30 days at any hospital? No External Providers External Provider: [facility] Next Contact Date: 11/20/2018 Service Request Date: Service Type: Resolution: Reviewer: Comments: Last DP export: 11/19/18 4:00 p Patient Name: MONIK PEÑALOZA Page 15677 at 1710 All edits/amendments must be made on the electronic document DICTATION DATE: 11/19/181709 POULTRY FARM SUPERVISOR: MAYELIN 11/19/181709 RPT#: [id number] DC DATE: STATUS: ADM IN [facility] [address] [place] [address] END OF REPORT
[2018-11-19 17:22] VITALS: BP 164/60
[2018-11-19 20:51] VITALS: BP 163/57
[2018-11-20 00:02] VITALS: BP 175/55
[2018-11-20 04:42] VITALS: BP 194/60
[2018-11-20 06:22] LABS: BASOPHILS 0.2 % (0-2); EOSINOPHILS 4.6 % (0-7); HEMATOCRIT 35.9 % (42.0-54.0); IMMATURE GRANULOCYTES 0.3 % (0-5); LYMPHOCYTES 15.1 % (15-50); MCH 22.8 pg (26.0-34.0); MCHC 30.6 g/dL (31.0-37.0); MCV 74.5 fL (80.0-100.0); MONOCYTES 17.9 % (2-11); NEUTROPHILS 61.9 % (40-80); PLATELET COUNT 137 10x3/uL (130-400); RBC 4.82 10x6/uL (4.20-6.10); RDW 18.8 % (11.5-14.5); WBC 6.1 10x3/uL (4.8-10.8)
[2018-11-20 06:44] LABS: ALBUMIN 2.7 g/dL (3.4-5.0); ALKALINE PHOSPHATASE 26 U/L (46-116); ALT (SGPT) 31 U/L (10-68); BILIRUBIN - TOTAL 0.25 mg/dL (0.2-1.3); CALC OSMOLALITY 279 mosm/kg (275-300); CALCIUM 8.3 mg/dL (8.5-10.1); CARBON DIOXIDE 24.6 mmol/L (21.0-32.0); CHLORIDE - SERUM 107 mmol/L (98-107); CREATININE - SERUM 0.9 mg/dL (0.6-1.3); GLUCOSE 93 mg/dL (74-106); POTASSIUM - SERUM 3.8 mmol/L (3.5-5.1); PROTEIN - SERUM 7.3 g/dL (6.4-8.2); SODIUM 141 mmol/L (136-145); UREA NITROGEN 11 mg/dL (7-18); eGFR NON AFRICAN AMERICAN 87 mL/min (90-120)
[2018-11-20 08:15] VITALS: BP 148/79
[2018-11-20] MEDS ORDERED: BACTRIM DS1 TAB PO (08:41)
--- NOTE | 2018-11-20 11:17 | MORECARE ---
CASE MANAGEMENT DISCHARGE SUMMARY PATIENT: MONIK PEÑALOZA UNIT: [id number] ADM DATE: 11/16/18 AGE: 78 : 40 SEX: M ROOM/BED: D.2134 AUTHOR: YESSENIADOC PHYSICIAN: REFERRING PHYSICIAN: DAVID IVYE DO DATE OF SERVICE: 11/20/18 Discharge Plan Patient Name: MONIK PEÑALOZA [facility]:[place] : 1940 Planned Disposition: Nursing Facility [facility] Cert Anticipated Discharge Date: 11/20/18 Discharge Date: Expected LOS: 4 Initial Reviewer: [id number] Initial Review Date: 11/16/2018 Generated: 11/20/18 12:17 pm Comments DCP- Discharge Planning Updated by [email or web address]: Jj Terrell on 11/20/18 10:[address] Patient Name: MONIK PEÑALOZA Encounter No: [id number] : 1940 Primary Insurance: [employer] MEDICARE SOLUTIONS Anticipated DC Date: 11-19-2018 Planned Disposition: Nursing Facility [facility] Cert External Planned Provider: [facility] LONG [facility]M CARE MEDICAID BED Discharge Planning Comments: CM RECEIVED DISCHARGE ORDER, MET WITH PT IN ROOM TO DISCUSS DISCHARGE PLANNING AND NEEDS. PT WILL RETURN TO [facility] C[facility] AT [facility] [place] [place]. IMPORTANT MESSAGE FROM MEDICARE PROVIDED AND DISCUSSED. CM NOTIFIED CAN, PT [facility] IN THE [facility]. CM FAXED DISCHARGE INFORMATION TO THE [facility] [place] AT [phone]. FOR DISCHARGE TO THE [facility] [place] [place] [facility],; NURSE REPORT TO BE CALLED TO THE [facility] [place] AT [phone]. THE [facility] [place] TO ARRANGE VAN TRANSPORATION. Truck Sales Manager: Jj Terrell DCP- Discharge Planning Updated by [id number]: Jj Terrell on 11/19/18 3:[address] Patient Name: MONIK PEÑALOZA Admission Status: ER Accout number: [id number] Admission Date: 11-16-2018 : 1940 Admission Diagnosis: Attending: DAVID IVEY Current LOS: 3 Anticipated DC Date: 11-19-2018 Planned Disposition: Nursing Facility [facility] Cert Primary Insurance: [facility] MEDICARE SOLUTIONS PLANNED EXTERNAL PROVIDER: [facility], FDC CARE MEDICAID BED Discharge Planning Comments: CM MET WITH PT IN ROOM TO DISCUSS DISCHARGE PLANNING AND NEEDS. PT REPORTS LIVING AT THE [facility] AND WILL RETURN AT DISCHARGE. 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 CM SPOKE TO [facility] OF [facility] ST[facility] WHO VERIFIED THAT PT IS IN [facility] C[facility] AT THE [facility] [place] AND WILL RETURN AT DISCHARGE. CAN WILL CHECK WITH FACILITY TO DETERMINE IF PT IS IN THE [facility] [place] AND NOTIFY CM. FOR DISCHARGE TO THE [facility] [place] [place] [facility], FAX DISCHARGE INFORMATION TO THE [facility] [place] AT [phone]; NURSE REPORT TO BE CALLED TO THE [facility] [place] AT [phone]. THE [facility] [place] TO ARRANGE VAN TRANSPORATION. Truck Sales Manager: Jj Terrell DCPIA - Discharge Planning Initial Assessment Updated by [id number]: Jj Terrell on 11/19/18 4:55 pm * Is the patient Alert and Oriented? Yes * How many steps to enter\exit or inside your home? NONE * PCP DR. ABDI * Pharmacy [facility] * Preadmission Environment [facility] * Facility Name [facility] [place] [place] [facility] * ADLs Partial Dependent * Partial ADLs (Assistance needed) Ambulation Bathing Medication Management Transfers * Equipment Wheelchair * Other Equipment ALL MEDICAL EQUIPMENT PROVIDED BY FACILITY * List name and contact numbers for known caregivers / representatives who currently or will assist patient after discharge: ORI HUBBARDMERCHIARA, * Verbal permission to speak to the caregivers and representatives has been obtained from the patient. N/A * Community resources currently utilized None * Please name any agencies selected above. NONE * Additional services required to return to the preadmission environment? No * Can the patient safely return to the preadmission environment? Yes * Has this patient been hospitalized within the prior 30 days at any hospital? No Coverage Notice Reviewer: [id number] - Jj Terrell Notice Issued Date-Time: 11/20/2018 9:20 Notice Type: IM Discharge Notice Notice Delivered To: Patient Relationship to Patient: Pantographer Name: Delivery Method: HAND - Hand Delivered Sophie Days: Prior Verbal Notification: Recipient Understood Notice: Yes Recipient Signature: Yes Med Rec Note Co-signed by Attending: Coverage Notice Comment: Last DP export: 11/19/18 4:10 p Patient Name: MONIK PEÑALOZA Page 81539 at 1117 All edits/amendments must be made on the electronic document DICTATION DATE: 11/20/181116 TRUCK SALES MANAGER: MAYELIN 11/20/181116 RPT#: [id number] DC DATE: STATUS: ADM IN [facility] [address] [place] [address] END OF REPORT
[2018-11-20 11:46] VITALS: BP 119/91
--- NOTE | 2018-11-20 12:37 | MORECARE ---
CASE MANAGEMENT DISCHARGE SUMMARY PATIENT: MONIK PEÑALOZA UNIT: [id number] ADM DATE: 11/16/18 AGE: 78 : 40 SEX: M ROOM/BED: D.2134 AUTHOR: ALEXANDRU CASAS PHYSICIAN: REFERRING PHYSICIAN: DAVID IVEY DO DATE OF SERVICE: 11/20/18 Discharge Plan Patient Name: MONIK PEÑALOZA Facility: [facility]:[place] : 1940 Planned Disposition: Nursing Facility [facility] Cert Anticipated Discharge Date: 11/20/18 Discharge Date: Expected LOS: 4 Initial Reviewer: [id number] Initial Review Date: 11/16/2018 Generated: 11/20/18 1:37 pm Comments DCP- Discharge Planning Updated by [id number]: Jj Terrell on 11/20/18 11:[address] Patient Name: MONIK PEÑALOZA Admission Status: ER Accout number: [id number] Admission Date: 11-16-2018 : 1940 Admission Diagnosis: Attending: DAVID IVEY Current LOS: 4 Anticipated DC Date: 11-20-2018 Planned Disposition: Nursing Facility [facility] Cert Primary Insurance: [facility] MEDICARE SOLUTIONS PLANNED EXTERNAL PROVIDER: [facility]IC[facility] REHAB BED Discharge Planning Comments: CM SPOKE TO CAN OF THE [facility], WHO INFORMED CM THAT PT WANTS TO RETURN TO REHAB BED AT THE [facility]. PT HAS MANAGED MEDICARE AND REQUIRES PHYSICAL AND OCCUPATIONAL THERAPY EVALUATION WELL PRIOR AUTHORIZATION TO RETURN TO THE FACILITY FOR REHAB SERVICES FROM MANAGED MEDICARE INSURANCE. PT NOTIFIED AND REPORTS HE WANTS REHAB SERVICES IF POSSIBLE. CM NOW WAITING ON COMPLETION AND DOCUMENTATION OF PT/OT EVALUATIONS, WILL FAX TO THE [facility] WHEN RECEIVED AT [phone]. Recooperer: Jj Terrell Recooperer: Jj Terrell DCP- Discharge Planning Updated by [id number]: Jj Terrell on 11/20/18 10:[address] Patient Name: MONIK PEÑALOZA Encounter No: [id number] : 1940 Primary Insurance: [facility] MEDICARE SOLUTIONS Anticipated DC Date: 11-19-2018 Planned Disposition: Nursing Facility [facility] Cert External Planned Provider: [facility], LONG TERM CARE MEDICAID BED Discharge Planning Comments: CM RECEIVED DISCHARGE ORDER, MET WITH PT IN ROOM TO DISCUSS DISCHARGE PLANNING AND NEEDS. 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. IMPORTANT MESSAGE FROM MEDICARE PROVIDED AND DISCUSSED. CM NOTIFIED CAN, PT IS IN THE [facility]. CM FAXED DISCHARGE INFORMATION TO THE [facility] AT [phone]. FOR DISCHARGE TO THE [facility],; NURSE REPORT TO BE CALLED TO THE [facility] AT [phone]. [facility] TO ARRANGE VAN TRANSPORATION. Recooperer: Jj Terrell DCP- Discharge Planning Updated by [id number]: Jj Terrell on 11/19/18 3:[address] Patient Name: MONIK PEÑALOZA Admission Status: ER Accout number: [id number] Admission Date: 11-16-2018 : 1940 Admission Diagnosis: Attending: DAVID IVEY Current LOS: 3 Anticipated DC Date: 11-19-2018 Planned Disposition: Nursing Facility [facility] Primary Insurance: [facility] MEDICARE SOLUTIONS PLANNED EXTERNAL PROVIDER: [facility], LONG TERM CARE MEDICAID BED Discharge Planning Comments: CM MET WITH PT IN ROOM TO DISCUSS DISCHARGE PLANNING AND NEEDS. PT REPORTS LIVING AT THE [facility] AND WILL RETURN AT DISCHARGE. 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 CM SPOKE TO CAN [facility] AT N[facility]ES STATION WHO VERIFIED THAT PT IS IN MELLOWING MACHINE OPERATOR CARE AT THE [facility] AND WILL RETURN AT DISCHARGE. CAN WILL CHECK WITH FACILITY TO DETERMINE IF PT IS IN THE [place] OR [facility] AND NOTIFY CM. FOR DISCHARGE TO THE [facility], FAX DISCHARGE INFORMATION TO THE [facility] AT [phone]; NURSE REPORT TO BE CALLED TO THE [facility] AT [phone]. THE [facility] TO ARRANGE VAN TRANSPORATION. Recooperer: Jj Terrell DCPIA - Discharge Planning Initial Assessment Updated by [id number]: Jj Terrell on 11/19/18 4:55 pm * Is the patient Alert and Oriented? Yes * How many steps to enter\exit or inside your home? NONE * PCP DR. ABDI * Pharmacy [facility] * Preadmission Environment Group Home Alf * Facility Name [facility] * ADLs Partial Dependent * Partial ADLs (Assistance needed) Ambulation Bathing Medication Management Transfers * Equipment Wheelchair * Other Equipment ALL MEDICAL EQUIPMENT PROVIDED BY FACILITY * List name and contact numbers for known caregivers / representatives who currently or will assist patient after discharge: CHIARA SAAB, * Verbal permission to speak to the caregivers and representatives has been obtained from the patient. N/A * Community resources currently utilized None * Please name any agencies selected above. NONE * Additional services required to return to the preadmission environment? No * Can the patient safely return to the preadmission environment? Yes * Has this patient been hospitalized within the prior 30 days at any hospital? No Coverage Notice Reviewer: [id number] Miguel Terrell Notice Issued Date-Time: 11/20/2018 9:20 Notice Type: IM Discharge Notice Notice Delivered To: Patient Relationship to Patient: Pump Runner Name: Delivery Method: HAND - Hand Delivered Sophie Days: Prior Verbal Notification: Recipient Understood Notice: Yes Recipient Signature: Yes Med Rec Note Co-signed by Attending: Coverage Notice Comment: Last DP export: 11/20/18 10:17 a Patient Name: MONIK PEÑALOZA Page 73657 at 1237 All edits/amendments must be made on the electronic document DICTATION DATE: 11/20/18 1237 HATCHERY MAN: MAYELIN 11/20/18 1237 RPT#: [id number] DC DATE: STATUS: ADM IN [facility] [address] [place] [address] END OF REPORT
[2018-11-20 15:07] VITALS: BP 132/74
--- NOTE | 2018-11-20 16:54 | MORECARE ---
CASE MANAGEMENT DISCHARGE SUMMARY PATIENT: MONIK PEÑALOZA UNIT: [id number] ADM DATE: 11/16/18 AGE: 78 : 40 SEX: M ROOM/BED: D.5554 AUTHOR: YESSENIA,DOC PHYSICIAN: REFERRING PHYSICIAN: DAVID IVEY DO DATE OF SERVICE: 11/20/18 Discharge Plan Patient Name: MONIK PEÑALOZA Facility: [facility]:[place] : 1940 Planned Disposition: Nursing Facility [facility] Cert Anticipated Discharge Date: 11/21/18 Discharge Date: Expected LOS: 5 Initial Reviewer: [id number] Initial Review Date: 11/16/2018 Generated: 11/20/18 5:54 pm Comments DCP- Discharge Planning Updated by [id number]: Jj Terrell on 11/20/18 3:[address] Patient Name: MONIK PEÑALOZA Admission Status: ER Accout number: [id number] Admission Date: 11-16-2018 : 1940 Admission Diagnosis: Attending: DAVID IVEY Current LOS: 4 Anticipated DC Date: 11-20-2018 Planned Disposition: Nursing Facility [facility] Cert Primary Insurance: [facility] MEDICARE SOLUTIONS PLANNED EXTERNAL PROVIDER: [facility], MEDICARE REHAB BED Discharge Planning Comments: CM SPOKE TO CAN OF THE [facility], WHO INFORMED CM THAT PT WANTS TO RETURN TO REHAB BED AT THE [facility]. PT HAS MANAGED MEDICARE AND REQUIRES PHYSICAL AND OCCUPATIONAL THERAPY EVALUATION WELL PRIOR AUTHORIZATION TO RETURN TO THE FACILITY FOR REHAB SERVICES FROM MANAGED MEDICARE INSURANCE. PT NOTIFIED AND REPORTS HE WANTS REHAB SERVICES IF POSSIBLE. CM NOW WAITING ON COMPLETION AND DOCUMENTATION OF PT/OT EVALUATIONS, WILL FAX TO THE [facility] WHEN RECEIVED AT [phone]. Take Down Inspector: Jj Terrell Take Down Inspector: Jj Terrell Appended by Jj Terrell on 11/20/2018 16:46 COKE CRUSHER OPERATOR: CM RECEIVED PT/OT EVALUATIONS, FAXED TO THE [facility] AT [phone]. CM WAITING INSURANCE AUTHORIZATION FOR SKILLED REHAB RETURN TO THE [facility]. CM TO CONTINUE TO FOLLOW AND ASSIST NEEDED. MELYSSA DELEON DCP- Discharge Planning Updated by [id number]: Jj Terrell on 11/20/18 10:[address] Patient Name: MONIK PEÑALOZA Encounter No: [id number] : 1940 Primary Insurance: [facility] MEDICARE SOLUTIONS Anticipated DC Date: 11-19-2018 Planned Disposition: Nursing Facility [facility] Cert External Planned Provider: THE [facility] - [facility], LONG TERM CARE MEDICAID BED Discharge Planning Comments: CM RECEIVED DISCHARGE ORDER, MET WITH PT IN ROOM TO DISCUSS DISCHARGE PLANNING AND NEEDS. PT WILL RETURN TO FITTING ROOM INSPECTOR CARE AT [facility]. IMPORTANT MESSAGE FROM MEDICARE PROVIDED AND DISCUSSED. CM NOTIFIED CAN, PT IS IN THE [facility]. CM FAXED DISCHARGE INFORMATION TO THE [facility] AT [phone]. FOR DISCHARGE TO THE [facility],; NURSE REPORT TO BE CALLED TO THE [facility] AT [phone]. THE [facility] TO ARRANGE VAN TRANSPORATION. Take Down Inspector: Jj Terrell DCP- Discharge Planning Updated by [id number]: Jj Terrell on 11/19/18 3:[address] Patient Name: MONIK PEÑALOZA Admission Status: ER Accout number: [id number] Admission Date: 11-16-2018 : 1940 Admission Diagnosis: Attending: DAVID IVEY Current LOS: 3 Anticipated DC Date: 11-19-2018 Planned Disposition: Nursing Facility [facility] Cert Primary Insurance: [facility] MEDICARE SOLUTIONS PLANNED EXTERNAL PROVIDER: THE [facility], LONG TERM CARE MEDICAID BED Discharge Planning Comments: CM MET WITH PT IN ROOM TO DISCUSS DISCHARGE PLANNING AND NEEDS. PT REPORTS LIVING AT THE [facility] AND WILL RETURN AT DISCHARGE. PT THINKS HE CAN RIDE IN VAN FOR BEHAVIORAL MODIFICATION ASSISTANT. CM SPOKE TO CAN OF [facility] AT NURSES STATION WHO VERIFIED THAT PT IS IN FITTING ROOM INSPECTOR CARE AT THE [facility] AND WILL RETURN AT DISCHARGE. CAN WILL CHECK WITH FACILITY TO DETERMINE IF PT IS IN THE [place] OR [facility] AND NOTIFY CM. FOR DISCHARGE TO THE [facility], FAX DISCHARGE INFORMATION TO THE [facility] AT [phone]; NURSE REPORT TO BE CALLED TO THE [facility] AT [phone]. THE [facility] TO ARRANGE VAN TRANSPORATION. Take Down Inspector: Jj Terrell DCPIA - Discharge Planning Initial Assessment Updated by [id number]: Jj Terrell on 11/19/18 4:55 pm * Is the patient Alert and Oriented? Yes * How many steps to enter\exit or inside your home? NONE * PCP DR. ABDI * Pharmacy [facility] * Preadmission Environment [employer] * Facility Name [facility] * ADLs Partial Dependent * Partial ADLs (Assistance needed) Ambulation Bathing Medication Management Transfers * Equipment Wheelchair * Other Equipment ALL MEDICAL EQUIPMENT PROVIDED BY FACILITY * List name and contact numbers for known caregivers / representatives who currently or will assist patient after discharge: ORI GERALDINE, CHIARA, * Verbal permission to speak to the caregivers and representatives has been obtained from the patient. N/A * Community resources currently utilized None * Please name any agencies selected above. NONE * Additional services required to return to the preadmission environment? No * Can the patient safely return to the preadmission environment? Yes * Has this patient been hospitalized within the prior 30 days at any hospital? No Coverage Notice Reviewer: [id number] Miguel Terrell Notice Issued Date-Time: 11/20/2018 9:20 Notice Type: IM Discharge Notice Notice Delivered To: Patient Relationship to Patient: End Lathe Operator Name: Delivery Method: HAND - Hand Delivered Sophie Days: Prior Verbal Notification: Recipient Understood Notice: Yes Recipient Signature: Yes Med Rec Note Co-signed by Attending: Coverage Notice Comment: Last DP export: 11/20/18 11:37 a Patient Name: MONIK PEÑALOZA Page [id number] at 1654 All edits/amendments must be made on the electronic document DICTATION DATE: 11/20/181653 GUEST RELATION OFFICER: MAYELIN 11/20/181653 RPT#: [id number] DC DATE: STATUS: ADM IN [facility] [address] [place] [address] END OF REPORT
[2018-11-20 21:03] VITALS: BP 139/54
[2018-11-21 00:31] VITALS: BP 149/44
[2018-11-21 06:10] LABS: HEMATOCRIT 35.8 % (42.0-54.0); HEMOGLOBIN 10.9 g/dL (13.5-17.5); MCH 22.8 pg (26.0-34.0); MCHC 30.4 g/dL (31.0-37.0); MCV 74.9 fL (80.0-100.0); PLATELET COUNT 142 10x3/uL (130-400); RBC 4.78 10x6/uL (4.20-6.10); RDW 19.5 % (11.5-14.5); WBC 6.3 10x3/uL (4.8-10.8)
[2018-11-21 06:30] LABS: ALBUMIN 2.6 g/dL (3.4-5.0); ANION GAP 14.7 mmol/L (8-16); BILIRUBIN - TOTAL 0.17 mg/dL (0.2-1.3); CALCIUM 8.1 mg/dL (8.5-10.1); CARBON DIOXIDE 23.9 mmol/L (21.0-32.0); CREATININE - SERUM 1.1 mg/dL (0.6-1.3); POTASSIUM - SERUM 3.6 mmol/L (3.5-5.1); PROTEIN - SERUM 6.9 g/dL (6.4-8.2)
[2018-11-21 07:55] LABS: EOSINOPHILS 4 % (0-7); LYMPHOCYTES 21 % (15-50); MONOCYTES 16 % (2-11); NEUTROPHILS 56 % (40-80); PLATELET ESTIMATE NORMAL; ROULEAUX OCC
[2018-11-21 08:35] VITALS: BP 180/62
[2018-11-21 11:36] VITALS: BP 164/67
--- NOTE | 2018-11-21 14:39 | MORECARE ---
CASE MANAGEMENT DISCHARGE SUMMARY PATIENT: MONIK PEÑALOZA UNIT: [id number] ADM DATE: 11/16/18 AGE: 78 : 40 SEX: M ROOM/BED: D.2704 AUTHOR: YESSENIA,DOC PHYSICIAN: REFERRING PHYSICIAN: DAVID IVEY DO DATE OF SERVICE: 11/21/18 Discharge Plan Patient Name: MONIK PEÑALOZA Facility: [facility]:[place] : 1940 Planned Disposition: Nursing Facility [facility] Cert Anticipated Discharge Date: 11/21/18 Discharge Date: Expected LOS: 5 Initial Reviewer: [id number] Initial Review Date: 11/16/2018 Generated: 11/21/18 3:39 pm Comments DCP- Discharge Planning Updated by [id number]: Jj Terrell on 11/20/18 3:[address] Patient Name: MONIK PEÑALOZA Admission Status: ER Accout number: [id number] Admission Date: 11-16-2018 : 1940 Admission Diagnosis: Attending: DAVID IVEY Current LOS: 4 Anticipated DC Date: 11-20-2018 Planned Disposition: Nursing Facility [facility] Cert Primary Insurance: [facility] MEDICARE SOLUTIONS PLANNED EXTERNAL PROVIDER: [facility], MEDICARE REHAB BED Discharge Planning Comments: CM SPOKE TO CAN OF THE [facility], WHO INFORMED CM THAT PT WANTS TO RETURN TO REHAB BED AT THE [facility]. PT HAS MANAGED MEDICARE AND REQUIRES PHYSICAL AND OCCUPATIONAL THERAPY EVALUATION WELL PRIOR AUTHORIZATION TO RETURN TO THE FACILITY FOR REHAB SERVICES FROM MANAGED MEDICARE INSURANCE. PT NOTIFIED AND REPORTS HE WANTS REHAB SERVICES IF POSSIBLE. CM NOW WAITING ON COMPLETION AND DOCUMENTATION OF PT/OT EVALUATIONS, WILL FAX TO THE [facility] WHEN RECEIVED AT [phone]. Transportation Escort: Jj Terrell Transportation Escort: Jj Terrell Appended by Jj Terrell on 11/20/2018 16:46 KNAPSACK SPRAYER: CM RECEIVED PT/OT EVALUATIONS, FAXED TO THE [facility] AT [phone]. CM WAITING INSURANCE AUTHORIZATION FOR SKILLED REHAB RETURN TO THE [facility]. CM TO CONTINUE TO FOLLOW AND ASSIST NEEDED. MELYSSA DELEON DCP- Discharge Planning Updated by [id number]: Jj Terrell on 11/20/18 10:[address] Patient Name: MONIK PEÑALOZA Encounter No: [id number] : 1940 Primary Insurance: [facility] MEDICARE SOLUTIONS Anticipated DC Date: 11-19-2018 Planned Disposition: Nursing Facility [facility] Cert External Planned Provider: THE [facility] NURSING [facility] - [facility], LONG TERM CARE MEDICAID BED Discharge Planning Comments: CM RECEIVED DISCHARGE ORDER, MET WITH PT IN ROOM TO DISCUSS DISCHARGE PLANNING AND NEEDS. PT WILL RETURN TO CABIN WORKER CARE AT [facility]. IMPORTANT MESSAGE FROM MEDICARE PROVIDED AND DISCUSSED. CM NOTIFIED CAN, PT IS IN THE [facility]. CM FAXED DISCHARGE INFORMATION TO THE [facility] AT [phone]. FOR DISCHARGE TO THE [facility],; NURSE REPORT TO BE CALLED TO THE [facility] AT [phone]. THE [facility] TO ARRANGE VAN TRANSPORATION. Transportation Escort: Jj Terrell DCP- Discharge Planning Updated by [id number]: Jj Terrell on 11/19/18 3:[address] Patient Name: MONIK PEÑALOZA Admission Status: ER Accout number: [id number] Admission Date: 11-16-2018 : 1940 Admission Diagnosis: Attending: DAVID IVEY Current LOS: 3 Anticipated DC Date: 11-19-2018 Planned Disposition: Nursing Facility [facility] Cert Primary Insurance: [facility] MEDICARE SOLUTIONS PLANNED EXTERNAL PROVIDER: THE [facility]URSING AND REHAB, LONG TERM CARE MEDICAID BED Discharge Planning Comments: CM MET WITH PT IN ROOM TO DISCUSS DISCHARGE PLANNING AND NEEDS. PT REPORTS LIVING AT THE [facility] AND WILL RETURN AT DISCHARGE. PT THINKS HE CAN RIDE IN VAN FOR ACADEMIC AFFAIRS ASSISTANT. CM SPOKE TO CAN OF [facility] AT NURSES STATION WHO VERIFIED THAT PT IS IN CABIN WORKER CARE AT THE [facility] AND WILL RETURN AT DISCHARGE. CAN WILL CHECK WITH FACILITY TO DETERMINE IF PT IS IN THE [place] OR [facility] AND NOTIFY CM. FOR DISCHARGE TO THE [facility], FAX DISCHARGE INFORMATION TO THE [facility] AT [phone]; NURSE REPORT TO BE CALLED TO THE [facility] AT [phone]. THE [facility] TO ARRANGE VAN TRANSPORATION. Transportation Escort: Jj Terrell DCPIA - Discharge Planning Initial Assessment Updated by [id number]: Jj Terrell on 11/19/18 4:55 pm * Is the patient Alert and Oriented? Yes * How many steps to enter\exit or inside your home? NONE * PCP DR. ABDI * Pharmacy [facility] * Preadmission Environment Nursing Home Custodial * Facility Name [facility] * ADLs Partial Dependent * Partial ADLs (Assistance needed) Ambulation Bathing Medication Management Transfers * Equipment Wheelchair * Other Equipment ALL MEDICAL EQUIPMENT PROVIDED BY FACILITY * List name and contact numbers for known caregivers / representatives who currently or will assist patient after discharge: ORI GERALDINE, CHIARA, * Verbal permission to speak to the caregivers and representatives has been obtained from the patient. N/A * Community resources currently utilized None * Please name any agencies selected above. NONE * Additional services required to return to the preadmission environment? No * Can the patient safely return to the preadmission environment? Yes * Has this patient been hospitalized within the prior 30 days at any hospital? No Coverage Notice Reviewer: [id number] Miguel Terrell Notice Issued Date-Time: 11/20/2018 9:20 Notice Type: IM Discharge Notice Notice Delivered To: Patient Relationship to Patient: Chief Substation Operator Name: Delivery Method: HAND - Hand Delivered Sophie Days: Prior Verbal Notification: Recipient Understood Notice: Yes Recipient Signature: Yes Med Rec Note Co-signed by Attending: Coverage Notice Comment: Last DP export: 11/20/18 3:54 p Patient Name: MONIK PEÑALOZA Page [id number] at 1439 All edits/amendments must be made on the electronic document DICTATION DATE: 11/21/181438 SORT WORKER: MAYELIN 11/21/181438 RPT#: [id number] DC DATE: STATUS: ADM IN [facility] [address] [place] [address] END OF REPORT
--- NOTE | 2018-11-21 14:48 | MORECARE ---
CASE MANAGEMENT DISCHARGE SUMMARY PATIENT: MONIK PEÑALOZA UNIT: [id number] ADM DATE: 11/16/18 AGE: 78 : 40 SEX: M ROOM/BED: D.2134 AUTHOR: ALEXANDRU CASAS PHYSICIAN: REFERRING PHYSICIAN: DAVID IVEY DO DATE OF SERVICE: 11/21/18 Discharge Plan Patient Name: MONIK PEÑALOZA Facility: [facility]:[place] : 1940 Planned Disposition: Nursing Facility [facility] Cert Anticipated Discharge Date: 11/21/18 Discharge Date: Expected LOS: 5 Initial Reviewer: [id number] Initial Review Date: 11/16/2018 Generated: 11/21/18 3:48 pm Comments DCP- Discharge Planning Updated by [id number]: Jj Blas on 11/21/18 1:[address] Patient Name: MONIK PEÑALOZA Encounter No: [id number] : 1940 Primary Insurance: [employer] MEDICARE SOLUTIONS Anticipated DC Date: 11-21-2018 Planned Disposition: Nursing Facility [facility] Cert External Planned Provider: [facility], MEDICARE REHAB [facility] DCP follow-up note: CM RECEIVED MESSAGE FROM [employer] OF [facility], THEY HAVE RECEIVED INSURANCE AUTHORIZATION TO TAKE PT BACK IN SKILLED BED. CM FAXED DISCHARGE INFORMATION TO THE [facility] VIA [place] AT [phone]. CD MIXER NURSE WELL SUPERVISOR PHOSPHORIC ACID NOTIFIED. SUPERVISOR PHOSPHORIC ACID CONVEYED SUPERVISOR BRINE TIME TO BEDSIDE NURSE. CM NOTIFIED PT WHO IS IN AGREEMENT WITH DISCHARGE BACK TO [facility]. NURSE REPORT TO BE CALLED TO THE [facility] AT [phone]. THE [facility] TO ARRANGE VAN TRANSPORATION FOR 3PM TODAY. Jj Blas, CASE MANAGEMENT DCP- Discharge Planning Updated by [id number]: Jj Blas on 11/20/18 3:[address] Patient Name: MONIK PEÑALOZA Admission Status: ER Accout number: [id number] Admission Date: 11-16-2018 : 1940 Admission Diagnosis: Attending: DAVID IVEY Current LOS: 4 Anticipated DC Date: 11-20-2018 Planned Disposition: Nursing Facility [facility] Cert Primary Insurance: [facility] MEDICARE SOLUTIONS PLANNED EXTERNAL PROVIDER: [facility], MEDICARE REHAB BED Discharge Planning Comments: CM SPOKE TO CAN OF THE [facility], WHO INFORMED CM THAT PT WANTS TO RETURN TO REHAB BED AT THE [facility]. PT HAS MANAGED MEDICARE AND REQUIRES PHYSICAL AND OCCUPATIONAL THERAPY EVALUATION WELL PRIOR AUTHORIZATION TO RETURN TO THE FACILITY FOR REHAB SERVICES FROM MANAGED MEDICARE INSURANCE. PT NOTIFIED AND REPORTS HE WANTS REHAB SERVICES IF POSSIBLE. CM NOW WAITING ON COMPLETION AND DOCUMENTATION OF PT/OT EVALUATIONS, WILL FAX TO THE [facility] WHEN RECEIVED AT [phone]. Rn Acls: Jj Blas Rn Acls: Jj Blas Appended by Jj Blas on 11/20/2018 16:46 PRODUCTION LINE: CM RECEIVED PT/OT EVALUATIONS, FAXED TO THE [facility] AT [phone]. CM WAITING INSURANCE AUTHORIZATION FOR SKILLED REHAB RETURN TO THE [facility]. CM TO CONTINUE TO FOLLOW AND ASSIST NEEDED. JJ BLAS, MELYSSA MANAGEMENT DCP- Discharge Planning Updated by [id number]: Jj Blas on 11/20/18 10:[address] Patient Name: MONIK PEÑALOZA Encounter No: [id number] : 1940 Primary Insurance: [facility] MEDICARE SOLUTIONS Anticipated DC Date: 11-19-2018 Planned Disposition: Nursing Facility [facility] Cert External Planned Provider: [facility] MEDICAID BED Discharge Planning Comments: CM RECEIVED DISCHARGE ORDER, MET WITH PT IN ROOM TO DISCUSS DISCHARGE PLANNING AND NEEDS. PT WILL RETURN TO PER DIEM REGISTERED NURSE CARE AT THE [facility]. IMPORTANT MESSAGE FROM MEDICARE PROVIDED AND DISCUSSED. CM NOTIFIED CAN, PT IS IN THE [facility]. CM FAXED DISCHARGE INFORMATION TO THE [facility] AT [phone]. FOR DISCHARGE TO THE [facility],; NURSE REPORT TO BE CALLED TO THE [facility] AT [phone]. THE [facility] TO ARRANGE VAN TRANSPORATION. Rn Acls: Jj Blas DCP- Discharge Planning Updated by [id number]: Jj Blas on 11/19/18 3:[address] Patient Name: MONIK PEÑALOZA Admission Status: ER Accout number: [id number] Admission Date: 11-16-2018 : 1940 Admission Diagnosis: Attending: DAVID IVEY Current LOS: 3 Anticipated DC Date: 11-19-2018 Planned Disposition: Nursing Facility [facility] Cert Primary Insurance: [facility] MEDICARE SOLUTIONS PLANNED EXTERNAL PROVIDER: [facility], [facility] CARE MEDICAID BED Discharge Planning Comments: CM MET WITH PT IN ROOM TO DISCUSS DISCHARGE PLANNING AND NEEDS. PT REPORTS [facility] AT THE [facility] AND WILL RETURN AT DISCHARGE. PT THINKS HE CAN RIDE IN VAN FOR SUPERVISOR BRINE. CM SPOKE TO CAN OF [facility] AT NURSES STATION WHO VERIFIED THAT PT IS IN PER DIEM REGISTERED NURSE CARE AT THE [facility] AND WILL RETURN AT DISCHARGE. CAN WILL CHECK WITH FACILITY TO DETERMINE IF [place] [facility] [place] [facility] [facility] AND NOTIFY CM. FOR DISCHARGE TO [facility], FAX DISCHARGE INFORMATION TO THE [facility] AT [phone]; NURSE REPORT TO BE CALLED TO THE [facility] AT [phone]. THE [facility] TO ARRANGE VAN TRANSPORATION. Rn Acls: Jj Blas DCPIA - Discharge Planning Initial Assessment Updated by [id number]: Jj Blas on 11/19/18 4:55 pm * Is the patient Alert and Oriented? Yes * How many steps to enter\exit or inside your home? NONE * PCP DR. ABDI * Pharmacy [facility] * Preadmission Environment [facility] * Facility Name [facility] * ADLs Partial Dependent * Partial ADLs (Assistance needed) Ambulation Bathing Medication Management Transfers * Equipment Wheelchair * Other Equipment ALL MEDICAL EQUIPMENT PROVIDED BY FACILITY * List name and contact numbers for known caregivers / representatives who currently or will assist patient after discharge: ORI CHANDLER, KYREESIN, * Verbal permission to speak to the caregivers and representatives has been obtained from the patient. N/A * Community resources currently utilized None * Please name any agencies selected above. NONE * Additional services required to return to the preadmission environment? No * Can the patient safely return to the preadmission environment? Yes * Has this patient been hospitalized within the prior 30 days at any hospital? No Coverage Notice Reviewer: [id number] - Jj Blas Notice Issued Date-Time: 11/20/2018 9:20 Notice Type: IM Discharge Notice Notice Delivered To: Patient Relationship to Patient: [employer] Administrator Name: Delivery Method: HAND - Hand Delivered Sophie Days: Prior Verbal Notification: Recipient Understood Notice: Yes Recipient Signature: Yes Med Rec Note Co-signed by Attending: Coverage Notice Comment: Last DP export: 11/21/18 1:39 p Patient Name: MONIK PEÑALOZA Page [id number] at 1448 All edits/amendments must be made on the electronic document DICTATION DATE: 11/21/181447 RIGHT OF WAY MAINTENANCE SUPERVISOR: MAYELIN 11/21/181447 RPT#: [id number] DC DATE: STATUS: ADM IN [facility] [address] [place] [address] END OF REPORT
== END 2018-11-21 15:27 | DRG 871 ==
LOC: D.ER 15:18 → D.M2 18:38 → D.EDHOLD 18:38 → D.M2 19:10
PROVIDERS: Family Medicine; ADMIT Family Medicine
DX: A41.9 Sepsis, unspecified organism (principal); G92 Toxic encephalopathy; N39.0 Urinary tract infection, site not specified; G40.909 Epilepsy, unspecified, not intractable, without status epilepticus; E11.9 Type 2 diabetes mellitus without complications; I10 Essential (primary) hypertension; K21.9 Gastro-esophageal reflux disease without esophagitis; D50.9 Iron deficiency anemia, unspecified; R54 Age-related physical debility